=== PATIENT | male | born 1945 | race Caucasian/White ===

== ENCOUNTER → 2019-11-18 | Outpatient (CLI) | payer MEDICARE, OTHER ==
[~2019-11-18] MED LIST: ASPIRIN EC81 MG PO; BUTALB-ACETAMI1 EACH PO; CALCIUM 600 +1 EAC2 PO; CYCLOBENZAPRINE10 MG PO; CYPROHEPTADINE H4 MG PO; DOXEPIN HCL25 MG PO; FLURAZEPAM HCL15 MG PO; FOLIC ACID0.8 MG PO; LEVOTHYROXINE50 MCG PO; LISINOPRIL-HCT1 EAC2 PO; LORAZEPAM0.5 MG PO; MECLIZINE HCL12.5 MG PO; METOPROLOL TART25 MG PO; MIRTAZAPINE15 MG PO; NORCO 10-325 T1 EACH PO; NUEDEXTA 20-101 EACH PO; OXYBUTYNIN CHLOR5 M1 PO; PANTOPRAZOLE SO40 MG PO; PRAMIPEXOLE DIHY1 MG PO; PRAVASTATIN SOD40 MG PO; QUETIAPINE FUM100 MG PO; SERTRALINE HCL100 MG PO; TIROSINT50 MCG PO; TOPIRAMATE25 MG PO; VITAMIN B12-FO1 EACH PO; ZIPSOR25 MG PO
--- NOTE | 2019-11-18 11:00 | Diagnostic Imaging Report ---
Exam: KUB - 2 views Indication: Hematuria Comparison: None Findings: No radiographically apparent renal calculi. Phleboliths in the pelvis. Degenerative changes of the visualized spine and both hip joints. No acute osseous injury. Nonobstructive bowel gas pattern. No free air. Minimally visualized lung bases appear clear. Impression: No radiographically apparent renal calculi. Signed by: Jose Canela MD on 11/18/2019 10:57 AM
--- NOTE | 2019-11-18 12:02 | Diagnostic Imaging Report ---
EXAM: Renal Ultrasound INDICATION: ^[id number] ^[id number] ^ASYMPTOMATIC MIRCOSCOPIC HEMATURIA COMPARISON: None TECHNIQUE: Transverse and longitudinal images of the kidneys and bladder were obtained. FINDINGS: Right Kidney: Length: 12.2 cm Appearance: Normal echogenicity. Collecting system: No hydronephrosis Stones: None Cyst/Mass: 1.3 x 0.8 x 0.7 cm hyperechoic lower pole lesion, likely an angiomyolipoma. Left Kidney: Length: 13.1 cm Appearance: Normal echogenicity. Collecting system: No hydronephrosis Stones: None Cyst/Mass: None Bladder: No mass or calculi. Ureteral jets not visualized. Estimated prevoid volume of 207 cc. The prostate measures 2.2 x 2.6 x 2.6 cm with a volume estimate of 7.7 cc IMPRESSION: No hydronephrosis or renal calculi. 1.3 cm hyperechoic right lower pole lesion likely represents an angiomyolipoma. Signed by: Jose Canela MD on 11/18/2019 11:59 AM
== END ==
LOC: US 09:50
PROVIDERS: ATTEND Urology
DX: R31.21 Asymptomatic microscopic hematuria (principal)
CPT/HCPCS: 74018; 76770

== ENCOUNTER → 2020-01-18 | Day surgery (SDC) | payer MEDICARE, OTHER ==
[2020-01-13 11:50] LABS: BASOPHILS % 0.3 % (0.0-1.0); EOSINOPHILS # (AUTO) 0.2 (0.0-0.4); EOSINOPHILS % 1.9 % (0.0-6.0); HEMATOCRIT 39.2 % (38.2-49.6); LYMPHOCYTES # (AUTO) 2.7 (1.0-3.2); LYMPHOCYTES % 29.5 % (18.0-39.1); MEAN CORPUSCULAR HEMOGLOBIN 33.6 pg (28-32); MEAN CORPUSCULAR HGB CONC 33.2 g/dL (31-35); MEAN CORPUSCULAR VOLUME 101.3 fL (81-99); MONOCYTES # (AUTO) 0.9 (0.2-0.8); MONOCYTES % 9.9 % (4.4-11.3); NEUTROPHILS # (AUTO) 5.2 (2.1-6.9); NEUTROPHILS % 57.3 % (38.7-80.0); PLATELET COUNT 247 x10e3/uL (140-360); RED BLOOD COUNT 3.87 x10e6/uL (4.3-5.7)
--- NOTE | 2020-01-13 12:42 | Diagnostic Imaging Report ---
EXAM: CHEST 2 VIEWS DATE: 01/13/2020 11:16 AM INDICATION: Preoperative/greenish in evaluation COMPARISON: None FINDINGS: The trachea is midline. The lungs are symmetrically expanded without evidence for large focal consolidation, pneumothorax, or significant pleural effusion. The cardiomediastinal silhouette and pulmonary vasculature are within normal limits. No acute osseous abnormality is identified. The surrounding soft tissues are unremarkable. IMPRESSION: No acute cardiopulmonary process identified. Signed by: Dr. Kingsley Urbina MD on 01/13/2020 12:39 PM
[2020-01-13 13:02] LABS: ANION GAP 16.6 mmol/L (8-16); CALCIUM 9.6 mg/dL (8.4-10.2); CREATININE, SERUM 1.89 mg/dL (0.72-1.25)
[2020-01-13 13:08] LABS: POTASSIUM 5.6 mmol/L (3.5-5.1)
[~2020-01-18] MED LIST changes: +ACETAMINOPHEN PO; +ASPIR 8181 MG PO; +ATORVASTATIN CA20 MG PO; +BACITRACIN 50,000 UNIT VIAL ONE; +BACTRIM DS TAB1 EACH PO; +BUPIVACAINE HCL 0.5% INJ 30 ML VIAL INJ ONE; +CEFAZOLIN SOD 1 GM/NS 50ML 50 ML IV ONE; +CEPHALEXIN500 MG PO; +CIPRO500 MG PO; +DEXAMETHASONE SOD PHOS INJ 4 MG/ML VIAL ONE; +EFFIENT10 MG PO; +ESMOLOL HCL 100MG/10ML 10 MG/ML VIAL ONE; +FLOMAX0.4 MG PO; +HYDROXYZINE HCL25 MG PO; +ISOSORBIDE MONO30 MG PO; +LIDOCAINE HCL 2% LOCAL INJ 5 ML SDV VIAL INJ ONE; +LISINOPRIL2.5 MG PO; +LORAZEPAM PO; +MACULAR HEALTH1 EACH PO; +METOPROLOL SUCC25 MG PO; +NAPROXEN500 M1 PO; +ONDANSETRON HCL INJ 2MG/ML 2ML 2 MG/ML VIAL ONE; +PROPOFOL IV EMULSION 10 MG/ML 20 ML VIAL ONE; +RANEXA500 MG PO; +SEVOFLURANE INHAL SOLN 250 ML PEN BTL ONE
--- OUTSIDE RECORDS SUMMARY | 2020-01-18 05:11 | XMS REPORT ---
Author Author [facility] Address Unknown Phone Unavailable Care Team Providers Care Post Doctoral Researcher Name Role Phone Erik PRADO Unavailable Unavailable HAMPEL, AIMEE Unavailable Unavailable Payers Payer Name Policy Type Policy Number Effective Date Expiration Date Problems This patient has no known problems. Allergies, Adverse Reactions, Alerts Allergy Name Allergy Type Status Severity Reaction(s) Onset Date Inactive Date Treating Clinician Comments No Known Allergies DA Active U 2017-09-03 00:00:00 Medications This patient has no known medications. Results Test Description Test Time Test Comments Text Results Atomic Results Result Comments CHEST 2 VIEWS 2020-01-13 12:38:00 [place] [address] Patient Name: VIC RIVAS MR #: [id number] : 1945 Age/Sex: 74/M Req #: [id number] Adm Physician: Ordered by: Erik PRADO DPM Report #: [id number] Location: OR Room/Bed: Procedure: [id number] DX/CHEST 2 VIEWS Exam Date: 01/13/20 Exam Time: 1149 REPORT STATUS: Signed EXAM: CHEST 2 VIEWS DATE: 01/13/2020 11:16 AM IN DICATION: Preoperative/greenish in evaluation COMPARISON: None FINDINGS: The trachea is midline. The lungs are symmetrically expanded without evidence for large focal consolidation, pneumothorax, or significant pleural effusion. The cardiomediastinal silhouette and pulmonary vasculature are within normal limits. No acute osseous abnormality is identified. The surrounding soft tissues are unremarkable. IMPRESSION: No acute cardiopulmonary process identified. Signed by: Dr. Kingsley Urbina MD on 01/13/2020 12:39 PM Dictated By: KINGSLEY URBINA MD 1239 Transcribed By: CHANTEL on 01/13/20 1239 COPY TO: Erik PRADO DPM - CT CHEST W/O CONTRAST 2019-12-03 08:13:00 Name: VIC RIVAS [facility] : 1945 Age/S: 74 / M [address] [facility] Unit #: [id number] Loc: [place] [address] Phys: Verónica Bunn MD Acct: [id number] Dis Date: Status: REG CLI PHONE #: [phone] Exam Date: 12/03/2019 0707 FAX #: [phone] Reason: ABNL RESULTS OF PULM FUNCTION TEST EXAMS: CPT CODE: [id number] CT CHEST W/O CONTRAST 68974 HISTORY: Abnormal pulmonary function tests TECHNIQUE: [address] images were obtained through the chest without contrast. Automated exposure control for dose reduction. DLP: 456 mGy-cm COMPARISON: None FINDINGS: Statements: Lack of intravenous contrast limits evaluation of mediastinal contents. Lungs: No airspace consolidation or pleural effusion. Posterior left lower lobe calcified granuloma. Central airways are patent. Cardiovascular: Normal heart size. Coronary artery calcification. No pericardial effusion. No thoracic aortic aneurysm. Normal caliber pulmonary arteries. Mediastinum: No lymphadenopathy. Visualized thyroid is unremarkable. Normal esophagus. Included upper abdomen: Unremarkable. Bones and superficial soft tissues: Degen erative changes of the spine and shoulders. IMPRESSION: No airspace consolidation or pleural effusion. No pulmonary scarring or bronchiectasis. Normal heart size. Coronary artery calcification. LOCATION: LP PAGE 1 Signed Report (CONTINUED) Name: VIC RIVAS [facility] : 1945 Age/S: 74 / M [address] [facility] Unit #: [id number] Loc: [place] [address] Phys: Verónica Bunn MD Acct: [id number] Dis Date: Status: REG CLI PHONE #: [phone] Exam Date: 12/03/2019 0707 FAX #: [phone] Reason: ABNL RESULTS OF PULM FUNCTION TEST EXAMS: CPT CODE: [id number] CT CHEST W/O CONTRAST 31861 <Continued> at 0813 Reported and signed by: Cinda Ludwig D.O. CC: Alexys Ozuna MD; Verónica Bunn MD Technologist:Reza Rocha RT(R),(MR),(CT) CTDI: DLP: Trnscb Date/Time: 12/03/2019 (812) [email or web address] Orig Print D/T: S: 12/03/2019 (815) PAGE 2 Signed Report US RENAL RETROPERITONEAL COMP 2019-11-18 11:55:00 [place] [address] Patient Name: VIC RIVAS MR #: [id number] : 1945 Age/Sex: 74/M Req #: [id number] Adm Physician: Ordered by: AIMEE PINTO MD Report #: [id number] Location: US Room/Bed: Procedure: [id number] US/US RENAL RETROPERITONEAL COMP Exam Date: 11/18/19 Exam Time: 1018 REPORT STATUS: Signed EXAM: Renal Ultrasound INDICATION: [id number] ASYMPTOMATIC MIRCOSCOPIC HEMATURIA COMPARISON: None TECHNIQUE: Transverse and longitudinal images of the kidneys and bladder were obtained. FINDINGS: Right Kidney: Length: 12.2 cm Appearance: Normal echogenicity. Collecting system: No hydronephrosis Stones: None Cyst/Mass: 1.3 x 0.8 x 0.7 cm hyperechoic lower pole lesion, likely an angiomyolipoma. Left Kidney: Length: 13.1 cm Appearance: Normal echogenicity. Collecting system: No hydronephrosis Stones: None Cyst/Mass: None Bladder: No mass or calculi. Ureteral jets not visualized. Estimated prevoid volume of 207 cc. The prostate measures 2.2 x 2.6 x 2.6 cm with a volume estimate of 7.7 cc IMPRESSION: No hydronephrosis or renal calculi. 1.3 cm hyperechoic right lower pole lesion likely represents an angiomyolipoma. Signed by: Hill Diallo MD on 11/18/2019 11:59 AM Dictated By: HILL DIALLO MD 1159 Transcribed By: CHANTEL on 11/18/19 1159 COPY TO: AIMEE PINTO MD [facility] 2019-11-18 10:55:00 [place] [address] Patient Name: VIC RIVAS MR #: [id number] : 1945 Age/Sex: 74/M Req #: [id number] Adm Physician: Ordered by: AIMEE PINTO MD Report #: [id number] Location: Room/Bed: Procedure: [id number] DX/ABDOMEN-1VIEW (KUB) Exam Date: 11/18/19 Exam Time: 1043 REPORT STATUS: Signed Exam: KUB - 2 views Indication: Hematuria Comparison: None Findings: No radiographically apparent renal calculi. Phleboliths in the pelvis. Degenerative changes of the visualized spine and both hip joints. No acute osseous injury. Nonobstructive bowel gas pattern. No free air. Minimally visualized lung bases appear clear. Impression: No radiographically apparent renal calculi. Signed by: Hill Diallo MD on 11/18/2019 10:57 AM Dictated By: HILL DIALLO MD 105 Transcribed By: CHANTEL on 11/18/19 105 COPY TO: AIMEE PINTO MD GLUBED 2019-10-10 13:20:00 GLUBED (test code=GLUBED) 200 mg/dL 74-106 Performed by certified buffing wheel operator at [facility] [id number] 05:35:00* Test Item Value Reference Range Comments GLUBED (test code=GLUBED) 169 mg/dL 74-106 Performed by certified buffing wheel operator at [facility] BASIC METABOLIC [id number] 05:06:00* Test Item Value Reference Range Comments SODIUM (test code=NA) 139 mmol/L 136-145 POTASSIUM (test code=K) 3.2 mmol/L 3.5-5.1 CHLORIDE (test code=CL) 101.0 mmol/L 98-107 CARBON DIOXIDE (test code=CO2) 29.0 mmol/L 21-32 ANION GAP (test code=GAP) 12.2 10-20 GLUCOSE (test code=GLU) 182 mg/dL 74-106 BLOOD UREA NITROGEN (test code=BUN) 24 mg/dL 7-18 GLOMERULAR FILTRATION RATE (test code=GFR) 54 mL/min >=60 Estimated GFR by using Modified MDRD formula.Chronic kidney disease is defined as either kidney damageor GFR <60 mL/min/1.73 m2 for >3 months. CREATININE (test code=CREAT) 1.30 mg/dL 0.7-1.3 BUN/CREATININE RATIO (test code=BUN/CREA) 19.0 10-20 CALCIUM (test code=CA) 8.1 mg/dL 8.5-10.1 BASIC METABOLIC [id number] 05:05:00* Test Item Value Reference Range Comments SODIUM (test code=NA) 139 mmol/L 136-145 POTASSIUM (test code=K) 3.2 mmol/L 3.5-5.1 CHLORIDE (test code=CL) 101.0 mmol/L 98-107 CARBON DIOXIDE (test code=CO2) mmol/L 21-32 ANION GAP (test code=GAP) 10-20 GLUCOSE (test code=GLU) mg/dL 74-106 BLOOD UREA NITROGEN (test code=BUN) mg/dL 7-18 GLOMERULAR FILTRATION RATE (test code=GFR) mL/min >=60 CREATININE (test code=CREAT) mg/dL 0.7-1.3 BUN/CREATININE RATIO (test code=BUN/CREA) 10-20 CALCIUM (test code=CA) mg/dL 8.5-10.1 CBC W/AUTO [id number] 04:38:00* Test Item Value Reference Range Comments WHITE BLOOD CELL (test code=WBC) 7.6 K/mm3 4.5-12.5 RED BLOOD CELL (test code=RBC) 3.13 mill/mm3 4.0-5.8 HEMOGLOBIN (test code=HGB) 10.4 gram/dL 13.0-17.5 HEMATOCRIT (test code=HCT) 32.3 % 42.0-52.0 MEAN CELL VOLUME (test code=MCV) 103.2 fL 80-98 MEAN CELL HGB (test code=MCH) 33.2 picogram 27.0-33.0 MEAN CELL HGB CONCETRATION (test code=MCHC) 32.2 gram/dL 33.0-36.0 RED CELL DISTRIBUTION WIDTH (test code=RDW) 13.5 % 11.6-16.2 RED CELL DISTRIBUTION WIDTH SD (test code=RDW-SD) 51.2 fL 37.0-51.0 PLATELET COUNT (test code=PLT) 156 K/mm3 150-450 MEAN PLATELET VOLUME (test code=MPV) 9.9 fL 6.7-11.0 NEUTROPHIL % (test code=NT%) 66.4 % 39.0-69.0 IMMATURE GRANULOCYTE % (test code=IG%) 1.4 % 0.0-5.0 LYMPHOCYTE % (test code=LY%) 21.2 % 25.0-55.0 MONOCYTE % (test code=MO%) 9.0 % 0.0-10.0 EOSINOPHIL % (test code=EO%) 1.7 % 0.0-5.0 BASOPHIL % (test code=BA%) 0.3 % 0.0-1.0 NUCLEATED RBC % (test code=NRBC%) 0.0 % 0-0 NEUTROPHIL # (test code=NT#) 5.04 K/mm3 1.8-7.7 IMMATURE GRANULOCYTE # (test code=IG#) 0.11 x10 3/uL 0-0.03 LYMPHOCYTE # (test code=LY#) 1.61 K/mm3 1.0-5.0 MONOCYTE # (test code=MO#) 0.68 K/mm3 0-0.8 EOSINOPHIL # (test code=EO#) 0.13 K/mm3 0.0-0.5 BASOPHIL # (test code=BA#) 0.02 K/mm3 0.0-0.2 NUCLEATED RBC # (test code=NRBC#) 0.00 K/mm3 0.0-0.1 MANUAL DIFF REQUIRED (test code=MDIFF) NO [id number] 20:50:00* Test Item Value Reference Range Comments GLUBED (test code=GLUBED) 123 mg/dL 74-106 Performed by certified buffing wheel operator at [facility] [id number] 17:41:00* Test Item Value Reference Range Comments GLUBED (test code=GLUBED) 164 mg/dL 74-106 Performed by certified buffing wheel operator at [facility] [id number] 12:51:00* Test Item Value Reference Range Comments GLUBED (test code=GLUBED) 114 mg/dL 74-106 Performed by certified buffing wheel operator at [facility] BASIC METABOLIC [id number] 11:47:00* Test Item Value Reference Range Comments SODIUM (test code=NA) 138 mmol/L 136-145 POTASSIUM (test code=K) 3.2 mmol/L 3.5-5.1 CHLORIDE (test code=CL) 100.0 mmol/L 98-107 CARBON DIOXIDE (test code=CO2) 29.0 mmol/L 21-32 ANION GAP (test code=GAP) 12.2 10-20 GLUCOSE (test code=GLU) 154 mg/dL 74-106 BLOOD UREA NITROGEN (test code=BUN) 27 mg/dL 7-18 GLOMERULAR FILTRATION RATE (test code=GFR) 54 mL/min >=60 Estimated GFR by using Modified MDRD formula.Chronic kidney disease is defined as either kidney damageor GFR <60 mL/min/1.73 m2 for >3 months. CREATININE (test code=CREAT) 1.30 mg/dL 0.7-1.3 BUN/CREATININE RATIO (test code=BUN/CREA) 20.9 10-20 CALCIUM (test code=CA) 8.5 mg/dL 8.5-10.1 BASIC METABOLIC [id number] 11:44:00* Test Item Value Reference Range Comments SODIUM (test code=NA) 138 mmol/L 136-145 POTASSIUM (test code=K) 3.2 mmol/L 3.5-5.1 CHLORIDE (test code=CL) 100.0 mmol/L 98-107 CARBON DIOXIDE (test code=CO2) mmol/L 21-32 ANION GAP (test code=GAP) 10-20 GLUCOSE (test code=GLU) mg/dL 74-106 BLOOD UREA NITROGEN (test code=BUN) mg/dL 7-18 GLOMERULAR FILTRATION RATE (test code=GFR) mL/min >=60 CREATININE (test code=CREAT) mg/dL 0.7-1.3 BUN/CREATININE RATIO (test code=BUN/CREA) 10-20 CALCIUM (test code=CA) 8.5 mg/dL 8.5-10.1 CBC W/AUTO [id number] 11:14:00* Test Item Value Reference Range Comments WHITE BLOOD CELL (test code=WBC) 7.1 K/mm3 4.5-12.5 RED BLOOD CELL (test code=RBC) 3.20 mill/mm3 4.0-5.8 HEMOGLOBIN (test code=HGB) 10.6 gram/dL 13.0-17.5 HEMATOCRIT (test code=HCT) 32.6 % 42.0-52.0 MEAN CELL VOLUME (test code=MCV) 101.9 fL 80-98 MEAN CELL HGB (test code=MCH) 33.1 picogram 27.0-33.0 MEAN CELL HGB CONCETRATION (test code=MCHC) 32.5 gram/dL 33.0-36.0 RED CELL DISTRIBUTION WIDTH (test code=RDW) 13.7 % 11.6-16.2 RED CELL DISTRIBUTION WIDTH SD (test code=RDW-SD) 51.7 fL 37.0-51.0 PLATELET COUNT (test code=PLT) 152 K/mm3 150-450 MEAN PLATELET VOLUME (test code=MPV) 9.7 fL 6.7-11.0 NEUTROPHIL % (test code=NT%) 68.5 % 39.0-69.0 IMMATURE GRANULOCYTE % (test code=IG%) 0.8 % 0.0-5.0 LYMPHOCYTE % (test code=LY%) 18.8 % 25.0-55.0 MONOCYTE % (test code=MO%) 9.5 % 0.0-10.0 EOSINOPHIL % (test code=EO%) 2.1 % 0.0-5.0 BASOPHIL % (test code=BA%) 0.3 % 0.0-1.0 NUCLEATED RBC % (test code=NRBC%) 0.0 % 0-0 NEUTROPHIL # (test code=NT#) 4.83 K/mm3 1.8-7.7 IMMATURE GRANULOCYTE # (test code=IG#) 0.06 x10 3/uL 0-0.03 LYMPHOCYTE # (test code=LY#) 1.33 K/mm3 1.0-5.0 MONOCYTE # (test code=MO#) 0.67 K/mm3 0-0.8 EOSINOPHIL # (test code=EO#) 0.15 K/mm3 0.0-0.5 BASOPHIL # (test code=BA#) 0.02 K/mm3 0.0-0.2 NUCLEATED RBC # (test code=NRBC#) 0.00 K/mm3 0.0-0.1 MANUAL DIFF REQUIRED (test code=MDIFF) NO [id number] 06:32:00* Test Item Value Reference Range Comments GLUBED (test code=GLUBED) 103 mg/dL 74-106 Performed by certified buffing wheel operator at [facility] [id number] 21:20:00* Test Item Value Reference Range Comments GLUBED (test code=GLUBED) 193 mg/dL 74-106 Performed by certified buffing wheel operator at [facility] [id number] 17:25:00* Test Item Value Reference Range Comments GLUBED (test code=GLUBED) 105 mg/dL 74-106 Performed by certified buffing wheel operator at [facility] [id number] 12:17:00* Test Item Value Reference Range Comments GLUBED (test code=GLUBED) 195 mg/dL 74-106 Performed by certified buffing wheel operator at [facility] [id number] 07:12:00* Test Item Value Reference Range Comments GLUBED (test code=GLUBED) 94 mg/dL 74-106 Performed by certified buffing wheel operator at [facility] BASIC METABOLIC [id number] 05:05:00* Test Item Value Reference Range Comments SODIUM (test code=NA) 139 mmol/L 136-145 POTASSIUM (test code=K) 4.1 mmol/L 3.5-5.1 CHLORIDE (test code=CL) 100.0 mmol/L 98-107 CARBON DIOXIDE (test code=CO2) 31.0 mmol/L 21-32 ANION GAP (test code=GAP) 12.1 10-20 GLUCOSE (test code=GLU) 114 mg/dL 74-106 BLOOD UREA NITROGEN (test code=BUN) 25 mg/dL 7-18 GLOMERULAR FILTRATION RATE (test code=GFR) 43 mL/min >=60 Estimated GFR by using Modified MDRD formula.Chronic kidney disease is defined as either kidney damageor GFR <60 mL/min/1.73 m2 for >3 months. CREATININE (test code=CREAT) 1.60 mg/dL 0.7-1.3 BUN/CREATININE RATIO (test code=BUN/CREA) 16.1 10-20 CALCIUM (test code=CA) 8.7 mg/dL 8.5-10.1 CBC W/AUTO [id number] 04:39:00* Test Item Value Reference Range Comments WHITE BLOOD CELL (test code=WBC) 8.7 K/mm3 4.5-12.5 RED BLOOD CELL (test code=RBC) 3.40 mill/mm3 4.0-5.8 HEMOGLOBIN (test code=HGB) 11.2 gram/dL 13.0-17.5 HEMATOCRIT (test code=HCT) 34.5 % 42.0-52.0 MEAN CELL VOLUME (test code=MCV) 101.5 fL 80-98 MEAN CELL HGB (test code=MCH) 32.9 picogram 27.0-33.0 MEAN CELL HGB CONCETRATION (test code=MCHC) 32.5 gram/dL 33.0-36.0 RED CELL DISTRIBUTION WIDTH (test code=RDW) 14.0 % 11.6-16.2 RED CELL DISTRIBUTION WIDTH SD (test code=RDW-SD) 52.1 fL 37.0-51.0 PLATELET COUNT (test code=PLT) 175 K/mm3 150-450 MEAN PLATELET VOLUME (test code=MPV) 10.7 fL 6.7-11.0 NEUTROPHIL % (test code=NT%) 68.1 % 39.0-69.0 IMMATURE GRANULOCYTE % (test code=IG%) 1.1 % 0.0-5.0 LYMPHOCYTE % (test code=LY%) 18.1 % 25.0-55.0 MONOCYTE % (test code=MO%) 10.8 % 0.0-10.0 EOSINOPHIL % (test code=EO%) 1.6 % 0.0-5.0 BASOPHIL % (test code=BA%) 0.3 % 0.0-1.0 NUCLEATED RBC % (test code=NRBC%) 0.0 % 0-0 NEUTROPHIL # (test code=NT#) 5.93 K/mm3 1.8-7.7 IMMATURE GRANULOCYTE # (test code=IG#) 0.10 x10 3/uL 0-0.03 LYMPHOCYTE # (test code=LY#) 1.58 K/mm3 1.0-5.0 MONOCYTE # (test code=MO#) 0.94 K/mm3 0-0.8 EOSINOPHIL # (test code=EO#) 0.14 K/mm3 0.0-0.5 BASOPHIL # (test code=BA#) 0.03 K/mm3 0.0-0.2 NUCLEATED RBC # (test code=NRBC#) 0.00 K/mm3 0.0-0.1 MANUAL DIFF REQUIRED (test code=MDIFF) NO [id number] 20:42:00* Test Item Value Reference Range Comments GLUBED (test code=GLUBED) 165 mg/dL 74-106 Performed by certified buffing wheel operator at [facility] [id number] 16:58:00* Test Item Value Reference Range Comments GLUBED (test code=GLUBED) 213 mg/dL 74-106 Performed by certified buffing wheel operator at [facility] [id number] 12:23:00* Test Item Value Reference Range Comments GLUBED (test code=GLUBED) 107 mg/dL 74-106 Performed by certified buffing wheel operator at [facility] [id number] 06:05:00* Test Item Value Reference Range Comments GLUBED (test code=GLUBED) 88 mg/dL 74-106 Performed by certified buffing wheel operator at [facility] BASIC METABOLIC [id number] 05:06:00* Test Item Value Reference Range Comments SODIUM (test code=NA) 141 mmol/L 136-145 POTASSIUM (test code=K) 3.2 mmol/L 3.5-5.1 CHLORIDE (test code=CL) 103.0 mmol/L 98-107 CARBON DIOXIDE (test code=CO2) 30.0 mmol/L 21-32 ANION GAP (test code=GAP) 11.2 10-20 GLUCOSE (test code=GLU) 84 mg/dL 74-106 BLOOD UREA NITROGEN (test code=BUN) 22 mg/dL 7-18 GLOMERULAR FILTRATION RATE (test code=GFR) 59 mL/min >=60 Estimated GFR by using Modified MDRD formula.Chronic kidney disease is defined as either kidney damageor GFR <60 mL/min/1.73 m2 for >3 months. CREATININE (test code=CREAT) 1.20 mg/dL 0.7-1.3 BUN/CREATININE RATIO (test code=BUN/CREA) 18.8 10-20 CALCIUM (test code=CA) 8.3 mg/dL 8.5-10.1 CBC W/AUTO [id number] 04:38:00* Test Item Value Reference Range Comments WHITE BLOOD CELL (test code=WBC) 7.2 K/mm3 4.5-12.5 RED BLOOD CELL (test code=RBC) 3.23 mill/mm3 4.0-5.8 HEMOGLOBIN (test code=HGB) 10.6 gram/dL 13.0-17.5 HEMATOCRIT (test code=HCT) 33.1 % 42.0-52.0 MEAN CELL VOLUME (test code=MCV) 102.5 fL 80-98 MEAN CELL HGB (test code=MCH) 32.8 picogram 27.0-33.0 MEAN CELL HGB CONCETRATION (test code=MCHC) 32.0 gram/dL 33.0-36.0 RED CELL DISTRIBUTION WIDTH (test code=RDW) 13.7 % 11.6-16.2 RED CELL DISTRIBUTION WIDTH SD (test code=RDW-SD) 52.1 fL 37.0-51.0 PLATELET COUNT (test code=PLT) 149 K/mm3 150-450 MEAN PLATELET VOLUME (test code=MPV) 10.5 fL 6.7-11.0 NEUTROPHIL % (test code=NT%) 66.4 % 39.0-69.0 IMMATURE GRANULOCYTE % (test code=IG%) 1.1 % 0.0-5.0 LYMPHOCYTE % (test code=LY%) 21.3 % 25.0-55.0 MONOCYTE % (test code=MO%) 8.8 % 0.0-10.0 EOSINOPHIL % (test code=EO%) 2.1 % 0.0-5.0 BASOPHIL % (test code=BA%) 0.3 % 0.0-1.0 NUCLEATED RBC % (test code=NRBC%) 0.0 % 0-0 NEUTROPHIL # (test code=NT#) 4.76 K/mm3 1.8-7.7 IMMATURE GRANULOCYTE # (test code=IG#) 0.08 x10 3/uL 0-0.03 LYMPHOCYTE # (test code=LY#) 1.53 K/mm3 1.0-5.0 MONOCYTE # (test code=MO#) 0.63 K/mm3 0-0.8 EOSINOPHIL # (test code=EO#) 0.15 K/mm3 0.0-0.5 BASOPHIL # (test code=BA#) 0.02 K/mm3 0.0-0.2 NUCLEATED RBC # (test code=NRBC#) 0.00 K/mm3 0.0-0.1 MANUAL DIFF REQUIRED (test code=MDIFF) NO [id number] 21:20:00* Test Item Value Reference Range Comments GLUBED (test code=GLUBED) 116 mg/dL 74-106 Performed by certified buffing wheel operator at [facility] [id number] 18:28:00* Test Item Value Reference Range Comments GLUBED (test code=GLUBED) 163 mg/dL 74-106 Performed by certified buffing wheel operator at [facility] [id number] 12:02:00* Test Item Value Reference Range Comments GLUBED (test code=GLUBED) 141 mg/dL 74-106 Performed by certified buffing wheel operator at [facility] FE W/TOTAL IRON BINDING CAP.[id number] 11:58:00* Test Item Value Reference Range Comments SERUM IRON (test code=IRON) 43 ug/dL 50-175 TOTAL IRON BINDING CAPACITY (test code=TIBC) 255 mcg/dL 250-450 IRON SATURATION (test code=FESAT) 16.86 % 13-45 VITAMIN [id number] 11:58:00* Test Item Value Reference Range Comments VITAMIN B12 (test code=VITB12) 255 pg/mL 193-986 FOLIC [id number] 11:58:00* Test Item Value Reference Range Comments FOLIC ACID (test code=FOL) 13.8 ng/mL 3.10-17.50 [id number] 11:58:00* Test Item Value Reference Range Comments FERRITIN (test code=ANDREA) 98 ng/mL 8-388 [id number] 06:33:00* Test Item Value Reference Range Comments GLUBED (test code=GLUBED) 99 mg/dL 74-106 Performed by certified buffing wheel operator at [facility] B-TYPE NATRIURETIC [id number] 06:11:00* Test Item Value Reference Range Comments B-TYPE NATRIURETIC PEPTIDE (test code=BNP) 208.15 pgram/mL 0-100 BASIC METABOLIC [id number] 05:33:00* Test Item Value Reference Range Comments SODIUM (test code=NA) 142 mmol/L 136-145 POTASSIUM (test code=K) 3.6 mmol/L 3.5-5.1 CHLORIDE (test code=CL) 105.0 mmol/L 98-107 CARBON DIOXIDE (test code=CO2) 30.0 mmol/L 21-32 ANION GAP (test code=GAP) 10.6 10-20 GLUCOSE (test code=GLU) 96 mg/dL 74-106 BLOOD UREA NITROGEN (test code=BUN) 24 mg/dL 7-18 GLOMERULAR FILTRATION RATE (test code=GFR) 59 mL/min >=60 Estimated GFR by using Modified MDRD formula.Chronic kidney disease is defined as either kidney damageor GFR <60 mL/min/1.73 m2 for >3 months. CREATININE (test code=CREAT) 1.20 mg/dL 0.7-1.3 BUN/CREATININE RATIO (test code=BUN/CREA) 19.2 10-20 CALCIUM (test code=CA) 8.3 mg/dL 8.5-10.1 [id number] 05:33:00* Test Item Value Reference Range Comments MAGNESIUM (test code=MAG) 2.0 mg/dL 1.8-2.4 [id number] 05:33:00* Test Item Value Reference Range Comments TROPONIN-I (test code=TROPI) 0.044 ng/mL 0-0.045 BASIC METABOLIC [id number] 05:27:00* Test Item Value Reference Range Comments SODIUM (test code=NA) 142 mmol/L 136-145 POTASSIUM (test code=K) 3.6 mmol/L 3.5-5.1 CHLORIDE (test code=CL) 105.0 mmol/L 98-107 CARBON DIOXIDE (test code=CO2) mmol/L 21-32 ANION GAP (test code=GAP) 10-20 GLUCOSE (test code=GLU) mg/dL 74-106 BLOOD UREA NITROGEN (test code=BUN) mg/dL 7-18 GLOMERULAR FILTRATION RATE (test code=GFR) mL/min >=60 CREATININE (test code=CREAT) mg/dL 0.7-1.3 BUN/CREATININE RATIO (test code=BUN/CREA) 10-20 CALCIUM (test code=CA) mg/dL 8.5-10.1 [id number] 05:27:00* Test Item Value Reference Range Comments MAGNESIUM (test code=MAG) mg/dL 1.8-2.4 [id number] 05:27:00* Test Item Value Reference Range Comments TROPONIN-I (test code=TROPI) ng/mL 0-0.045 CBC W/AUTO [id number] 04:39:00* Test Item Value Reference Range Comments WHITE BLOOD CELL (test code=WBC) 7.2 K/mm3 4.5-12.5 RED BLOOD CELL (test code=RBC) 3.32 mill/mm3 4.0-5.8 HEMOGLOBIN (test code=HGB) 10.9 gram/dL 13.0-17.5 HEMATOCRIT (test code=HCT) 34.2 % 42.0-52.0 MEAN CELL VOLUME (test code=MCV) 103.0 fL 80-98 MEAN CELL HGB (test code=MCH) 32.8 picogram 27.0-33.0 MEAN CELL HGB CONCETRATION (test code=MCHC) 31.9 gram/dL 33.0-36.0 RED CELL DISTRIBUTION WIDTH (test code=RDW) 13.9 % 11.6-16.2 RED CELL DISTRIBUTION WIDTH SD (test code=RDW-SD) 52.5 fL 37.0-51.0 PLATELET COUNT (test code=PLT) 142 K/mm3 150-450 MEAN PLATELET VOLUME (test code=MPV) 10.6 fL 6.7-11.0 NEUTROPHIL % (test code=NT%) 67.2 % 39.0-69.0 IMMATURE GRANULOCYTE % (test code=IG%) 1.0 % 0.0-5.0 LYMPHOCYTE % (test code=LY%) 19.6 % 25.0-55.0 MONOCYTE % (test code=MO%) 10.7 % 0.0-10.0 EOSINOPHIL % (test code=EO%) 1.1 % 0.0-5.0 BASOPHIL % (test code=BA%) 0.4 % 0.0-1.0 NUCLEATED RBC % (test code=NRBC%) 0.0 % 0-0 NEUTROPHIL # (test code=NT#) 4.85 K/mm3 1.8-7.7 IMMATURE GRANULOCYTE # (test code=IG#) 0.07 x10 3/uL 0-0.03 LYMPHOCYTE # (test code=LY#) 1.41 K/mm3 1.0-5.0 MONOCYTE # (test code=MO#) 0.77 K/mm3 0-0.8 EOSINOPHIL # (test code=EO#) 0.08 K/mm3 0.0-0.5 BASOPHIL # (test code=BA#) 0.03 K/mm3 0.0-0.2 NUCLEATED RBC # (test code=NRBC#) 0.00 K/mm3 0.0-0.1 MANUAL DIFF REQUIRED (test code=MDIFF) NO [id number] 20:50:00* Test Item Value Reference Range Comments GLUBED (test code=GLUBED) 162 mg/dL 74-106 Performed by certified buffing wheel operator at [facility] [id number] 17:33:00* Test Item Value Reference Range Comments GLUBED (test code=GLUBED) 101 mg/dL 74-106 Performed by certified buffing wheel operator at [facility] [id number] 11:54:00* Test Item Value Reference Range Comments GLUBED (test code=GLUBED) 94 mg/dL 74-106 Performed by certified buffing wheel operator at [facility] COMPREHENSIVE METABOLIC [id number] 08:37:00* Test Item Value Reference Range Comments SODIUM (test code=NA) 142 mmol/L 136-145 POTASSIUM (test code=K) 3.6 mmol/L 3.5-5.1 CHLORIDE (test code=CL) 107.0 mmol/L 98-107 CARBON DIOXIDE (test code=CO2) 27.0 mmol/L 21-32 ANION GAP (test code=GAP) 11.6 10-20 GLUCOSE (test code=GLU) 102 mg/dL 74-106 BLOOD UREA NITROGEN (test code=BUN) 23 mg/dL 7-18 GLOMERULAR FILTRATION RATE (test code=GFR) 54 mL/min >=60 Estimated GFR by using Modified MDRD formula.Chronic kidney disease is defined as either kidney damageor GFR <60 mL/min/1.73 m2 for >3 months. CREATININE (test code=CREAT) 1.30 mg/dL 0.7-1.3 BUN/CREATININE RATIO (test code=BUN/CREA) 17.7 10-20 TOTAL PROTEIN (test code=PROT) 7.1 gram/dL 6.4-8.2 ALBUMIN (test code=ALB) 3.1 g/dL 3.4-5.0 GLOBULIN (test code=GLOB) 4.0 gram/dL 2.7-4.2 ALBUMIN/GLOBULIN RATIO (test code=A/G) 0.8 0.75-1.50 CALCIUM (test code=CA) 8.2 mg/dL 8.5-10.1 BILIRUBIN TOTAL (test code=BILT) 0.40 mg/dL 0.0-1.0 SGOT/AST (test code=AST) 25 IUnit/L 15-37 SGPT/ALT (test code=ALT) 26 IUnit/L 12-78 ALKALINE PHOSPHATASE TOTAL (test code=ALKP) 98 IUnit/L 45-117 Note change in reference range due to change in reagent. LIPID PROFILE (CORONARY RISK)2019-10-05 08:37:00* Test Item Value Reference Range Comments TRIGLYCERIDES (test code=TRIG) 91 mg/dL 20-150 CHOLESTEROL (test code=CHOL) 212 mg/dL 0-200 CHOLESTEROL/HDL RATIO (test code=CHOLHDL) 4.0 RATIO 0-4.9 RISK ASSOCIATED WITH CHOL/HDL RATIOS: Risk Male Female1/2 AVERAGE 3.43 3.27AVERAGE 4.97 4.442X AVERAGE 9.55 7.053X AVERAGE 23.39 11.04 REFERENCE VALUE IS RELATED TO RISK LEVELS ASRECOMMENDED BY THE [facility]. HEART, LUNG, AND BLOOD INST. HDL CHOLESTEROL (test code=HDL) 43 mg/dL 40-60 LIPOPROTEIN LDL (test code=LDL) 154 mg/dL 100-129 RN PERSONNEL, CONTACT PHYSICIAN IMMEDIATELY IF THIS IS A STROKE, AMI OR CAROTID STENOSIS PATIENT WHEN THE LDL >100 (1ST OCCURENCE, THIS ADMISSION) Reference Interval: mg/dL mmol/L Optimal <100 <2.6Near/above optimal 100-129 2.6- 3.3Borderline High 130-159 3.4-4.1High 160-189 4.1-4.9Very High >=190 >=4.9=========This LDL result is a direct measurement.========= [id number] 08:37:00* Test Item Value Reference Range Comments MAGNESIUM (test code=MAG) 2.2 mg/dL 1.8-2.4 THYROID PROFILE [id number] 08:37:00* Test Item Value Reference Range Comments T3 UPTAKE (test code=T3UP) 30.0 % 30.0-40.0 T4 (THYROXINE) (test code=T4) 9.6 ug/dL 4.5-13.9 T7 (FREE THYROXINE INDEX) (test code=T7) 2.88 FTI 1.3-5.1 THYROID STIMULATING HORMONE (test code=TSH) 4.960 uIU/mL 0.36-3.74 TSH REFERENCE RANGES: EUTHYROID: 0.35 - 4.3 mIU/mL HYPO : > 5.5 mIU/mL HYPER : < 0.35 mIU/mL [id number] 08:37:00* Test Item Value Reference Range Comments TROPONIN-I (test code=TROPI) 0.052 ng/mL 0-0.045 PREVIOUSLY CALLED. V.LAB. 10/05/19 0837 B-TYPE NATRIURETIC [id number] 08:25:00* Test Item Value Reference Range Comments B-TYPE NATRIURETIC PEPTIDE (test code=BNP) 200.18 pgram/mL 0-100 PROTHROMBIN [id number] 08:15:00* Test Item Value Reference Range Comments PROTHROMBIN TIME PATIENT (test code=PTP) 12.3 seconds 9.0-14.0 INTERNATIONAL NORMAL RATIO (test code=INR) 1.1 0.8-1.2 The therapeutic range for oral anticoagulant therapy formost indications is an international normalized ratio (INR)of between 2.0 and 3.0. The recommended therapeutic INRrange for various clinical situations is listed below: Clinical Situation INR range Pulmonary e mbolism treatment (2.0-3.0)Venous thrombosis treatmentVenous thrombosis prophylaxis (high risk surgery)Prevention of systemic embolism from: Acute myocardial infarction Valvular heart disease Atrial fibrillation Mechanical prosthetic heart valves (2.5-3.5) IS PATIENT ON ANTICOAGULANTS? NTHROMBOPLASTIN TIME [id number] 08:15:00* Test Item Value Reference Range Comments THROMBOPLASTIN TIME PARTIAL (test code=PTT) 37.4 seconds 25.0-36.5 IS PATIENT ON ANTICOAGULANTS? NCOMPREHENSIVE METABOLIC [id number] 08:11:00 * Test Item Value Reference Range Comments SODIUM (test code=NA) 142 mmol/L 136-145 POTASSIUM (test code=K) 3.6 mmol/L 3.5-5.1 CHLORIDE (test code=CL) 107.0 mmol/L 98-107 CARBON DIOXIDE (test code=CO2) mmol/L 21-32 ANION GAP (test code=GAP) 10-20 GLUCOSE (test code=GLU) mg/dL 74-106 BLOOD UREA NITROGEN (test code=BUN) mg/dL 7-18 GLOMERULAR FILTRATION RATE (test code=GFR) mL/min >=60 CREATININE (test code=CREAT) mg/dL 0.7-1.3 BUN/CREATININE RATIO (test code=BUN/CREA) 10-20 TOTAL PROTEIN (test code=PROT) gram/dL 6.4-8.2 ALBUMIN (test code=ALB) g/dL 3.4-5.0 GLOBULIN (test code=GLOB) gram/dL 2.7-4.2 ALBUMIN/GLOBULIN RATIO (test code=A/G) 0.75-1.50 CALCIUM (test code=CA) mg/dL 8.5-10.1 BILIRUBIN TOTAL (test code=BILT) mg/dL 0.0-1.0 SGOT/AST (test code=AST) IUnit/L 15-37 SGPT/ALT (test code=ALT) IUnit/L 12-78 ALKALINE PHOSPHATASE TOTAL (test code=ALKP) IUnit/L 45-117 LIPID PROFILE (CORONARY RISK)2019-10-05 08:11:00* Test Item Value Reference Range Comments TRIGLYCERIDES (test code=TRIG) mg/dL 20-150 CHOLESTEROL (test code=CHOL) mg/dL 0-200 CHOLESTEROL/HDL RATIO (test code=CHOLHDL) RATIO 0-4.9 HDL CHOLESTEROL (test code=HDL) mg/dL 40-60 LIPOPROTEIN LDL (test code=LDL) mg/dL 100-129 [id number] 08:11:00* Test Item Value Reference Range Comments MAGNESIUM (test code=MAG) mg/dL 1.8-2.4 THYROID PROFILE [id number] 08:11:00* Test Item Value Reference Range Comments T3 UPTAKE (test code=T3UP) % 30.0-40.0 T4 (THYROXINE) (test code=T4) ug/dL 4.5-13.9 T7 (FREE THYROXINE INDEX) (test code=T7) FTI 1.3-5.1 THYROID STIMULATING HORMONE (test code=TSH) uIU/mL 0.36-3.74 [id number] 08:11:00* Test Item Value Reference Range Comments TROPONIN-I (test code=TROPI) ng/mL 0-0.045 [id number] 08:08:00* Test Item Value Reference Range Comments GLYCOSYLATED HEMOGLOBIN (HA1C) (test code=GLYHGB) 5.4 % HbA1 4.8-6.0 ESTIMATED AVERAGE GLUCOSE (test code=EAG) 108 MG/DL CBC W/AUTO [id number] 08:07:00* Test Item Value Reference Range Comments WHITE BLOOD CELL (test code=WBC) 7.1 K/mm3 4.5-12.5 RED BLOOD CELL (test code=RBC) 3.20 mill/mm3 4.0-5.8 HEMOGLOBIN (test code=HGB) 10.6 gram/dL 13.0-17.5 HEMATOCRIT (test code=HCT) 33.6 % 42.0-52.0 MEAN CELL VOLUME (test code=MCV) 105.0 fL 80-98 MEAN CELL HGB (test code=MCH) 33.1 picogram 27.0-33.0 MEAN CELL HGB CONCETRATION (test code=MCHC) 31.5 gram/dL 33.0-36.0 RED CELL DISTRIBUTION WIDTH (test code=RDW) 14.5 % 11.6-16.2 RED CELL DISTRIBUTION WIDTH SD (test code=RDW-SD) 55.8 fL 37.0-51.0 PLATELET COUNT (test code=PLT) 136 K/mm3 150-450 MEAN PLATELET VOLUME (test code=MPV) 10.3 fL 6.7-11.0 NEUTROPHIL % (test code=NT%) 68.8 % 39.0-69.0 IMMATURE GRANULOCYTE % (test code=IG%) 1.0 % 0.0-5.0 LYMPHOCYTE % (test code=LY%) 17.9 % 25.0-55.0 MONOCYTE % (test code=MO%) 10.8 % 0.0-10.0 EOSINOPHIL % (test code=EO%) 0.9 % 0.0-5.0 BASOPHIL % (test code=BA%) 0.6 % 0.0-1.0 NUCLEATED RBC % (test code=NRBC%) 0.0 % 0-0 NEUTROPHIL # (test code=NT#) 4.86 K/mm3 1.8-7.7 IMMATURE GRANULOCYTE # (test code=IG#) 0.07 x10 3/uL 0-0.03 LYMPHOCYTE # (test code=LY#) 1.26 K/mm3 1.0-5.0 MONOCYTE # (test code=MO#) 0.76 K/mm3 0-0.8 EOSINOPHIL # (test code=EO#) 0.06 K/mm3 0.0-0.5 BASOPHIL # (test code=BA#) 0.04 K/mm3 0.0-0.2 NUCLEATED RBC # (test code=NRBC#) 0.00 K/mm3 0.0-0.1 MANUAL DIFF REQUIRED (test code=MDIFF) NO [id number] 05:59:00* Test Item Value Reference Range Comments GLUBED (test code=GLUBED) 97 mg/dL 74-106 Performed by certified buffing wheel operator at [facility] [id number] 20:41:00* Test Item Value Reference Range Comments GLUBED (test code=GLUBED) 165 mg/dL 74-106 Performed by certified buffing wheel operator at [facility] [id number] 16:42:00* Test Item Value Reference Range Comments GLUBED (test code=GLUBED) 118 mg/dL 74-106 Performed by certified buffing wheel operator at [facility] [id number] 16:42:00* Test Item Value Reference Range Comments GLUBED (test code=GLUBED) 124 mg/dL 74-106 Performed by certified buffing wheel operator at [facility] BASIC METABOLIC [id number] 12:09:00* Test Item Value Reference Range Comments SODIUM (test code=NA) 142 mmol/L 136-145 POTASSIUM (test code=K) 4.1 mmol/L 3.5-5.1 CHLORIDE (test code=CL) 108.0 mmol/L 98-107 CARBON DIOXIDE (test code=CO2) 26.0 mmol/L 21-32 ANION GAP (test code=GAP) 12.1 10-20 GLUCOSE (test code=GLU) 124 mg/dL 74-106 BLOOD UREA NITROGEN (test code=BUN) 22 mg/dL 7-18 GLOMERULAR FILTRATION RATE (test code=GFR) > 60 mL/min >=60 Estimated GFR by using Modified MDRD formula.Chronic kidney disease is defined as either kidney damageor GFR <60 mL/min/1.73 m2 for >3 months. CREATININE (test code=CREAT) 1.10 mg/dL 0.7-1.3 BUN/CREATININE RATIO (test code=BUN/CREA) 20.0 10-20 CALCIUM (test code=CA) 8.2 mg/dL 8.5-10.1 THYROID PROFILE [id number] 12:09:00* Test Item Value Reference Range Comments T3 UPTAKE (test code=T3UP) 32.0 % 30.0-40.0 T4 (THYROXINE) (test code=T4) 9.1 ug/dL 4.5-13.9 T7 (FREE THYROXINE INDEX) (test code=T7) 2.91 FTI 1.3-5.1 THYROID STIMULATING HORMONE (test code=TSH) 2.830 uIU/mL 0.36-3.74 TSH REFERENCE RANGES: EUTHYROID: 0.35 - 4.3 mIU/mL HYPO : > 5.5 mIU/mL HYPER : < 0.35 mIU/mL B-TYPE NATRIURETIC [id number] 12:08:00* Test Item Value Reference Range Comments B-TYPE NATRIURETIC PEPTIDE (test code=BNP) 361.91 pgram/mL 0-100 BASIC METABOLIC [id number] 11:49:00* Test Item Value Reference Range Comments SODIUM (test code=NA) 142 mmol/L 136-145 POTASSIUM (test code=K) 4.1 mmol/L 3.5-5.1 CHLORIDE (test code=CL) 108.0 mmol/L 98-107 CARBON DIOXIDE (test code=CO2) mmol/L 21-32 ANION GAP (test code=GAP) 10-20 GLUCOSE (test code=GLU) mg/dL 74-106 BLOOD UREA NITROGEN (test code=BUN) mg/dL 7-18 GLOMERULAR FILTRATION RATE (test code=GFR) mL/min >=60 CREATININE (test code=CREAT) mg/dL 0.7-1.3 BUN/CREATININE RATIO (test code=BUN/CREA) 10-20 CALCIUM (test code=CA) mg/dL 8.5-10.1 THYROID PROFILE [id number] 11:49:00* Test Item Value Reference Range Comments T3 UPTAKE (test code=T3UP) % 30.0-40.0 T4 (THYROXINE) (test code=T4) ug/dL 4.5-13.9 T7 (FREE THYROXINE INDEX) (test code=T7) FTI 1.3-5.1 THYROID STIMULATING HORMONE (test code=TSH) uIU/mL 0.36-3.74 CBC W/AUTO [id number] 11:21:00* Test Item Value Reference Range Comments WHITE BLOOD CELL (test code=WBC) 11.1 K/mm3 4.5-12.5 RED BLOOD CELL (test code=RBC) 3.32 mill/mm3 4.0-5.8 HEMOGLOBIN (test code=HGB) 11.1 gram/dL 13.0-17.5 HEMATOCRIT (test code=HCT) 34.5 % 42.0-52.0 MEAN CELL VOLUME (test code=MCV) 103.9 fL 80-98 MEAN CELL HGB (test code=MCH) 33.4 picogram 27.0-33.0 MEAN CELL HGB CONCETRATION (test code=MCHC) 32.2 gram/dL 33.0-36.0 RED CELL DISTRIBUTION WIDTH (test code=RDW) 14.4 % 11.6-16.2 RED CELL DISTRIBUTION WIDTH SD (test code=RDW-SD) 54.4 fL 37.0-51.0 PLATELET COUNT (test code=PLT) 154 K/mm3 150-450 MEAN PLATELET VOLUME (test code=MPV) 10.1 fL 6.7-11.0 NEUTROPHIL % (test code=NT%) 82.3 % 39.0-69.0 IMMATURE GRANULOCYTE % (test code=IG%) 1.0 % 0.0-5.0 LYMPHOCYTE % (test code=LY%) 8.9 % 25.0-55.0 MONOCYTE % (test code=MO%) 7.6 % 0.0-10.0 EOSINOPHIL % (test code=EO%) 0.0 % 0.0-5.0 BASOPHIL % (test code=BA%) 0.2 % 0.0-1.0 NUCLEATED RBC % (test code=NRBC%) 0.0 % 0-0 NEUTROPHIL # (test code=NT#) 9.12 K/mm3 1.8-7.7 IMMATURE GRANULOCYTE # (test code=IG#) 0.11 x10 3/uL 0-0.03 LYMPHOCYTE # (test code=LY#) 0.98 K/mm3 1.0-5.0 MONOCYTE # (test code=MO#) 0.84 K/mm3 0-0.8 EOSINOPHIL # (test code=EO#) 0.00 K/mm3 0.0-0.5 BASOPHIL # (test code=BA#) 0.02 K/mm3 0.0-0.2 NUCLEATED RBC # (test code=NRBC#) 0.00 K/mm3 0.0-0.1 MANUAL DIFF REQUIRED (test code=MDIFF) NO - CTA CHEST FOR [id number] 10:37:00 Name: VIC RIVAS [facility] : 1945 Age/S: 74 / M [address] [facility] Unit #: [id number] Loc: [place], [place] [address] Phys: Romel Medley MD Acct: [id number] Dis Date: Status: ADM IN PHONE #: [phone] Exam Date: 10/04/2019 1014 FAX #: [phone] Reason: D-DIMER 185 EXAMS: CPT CODE: [id number] [place] [id number] REASON FOR EXAM: D-DIMER 185 EXAM ORDER DATE: 10/04/2019 7:40 PM Ordering M.DSachi: Romel Medley MD PROCEDURE: - CTA CHEST FOR PE Comparison:Frontal chest x-ray [address] images of the chest were obtained with IV contrast utilizing a PE protocol. Reconstructed sagittal and coronal images of the chest were provided for interpretation. Dose reduction techniques were applied. FINDINGS: Visualized neck: Normal Airways, Lungs and Pleura: Small to moderate-sized pleural effusion on the right side and a small left-sided pleural effusion. There is compressive atelectasis of the underlying lungs. There are also groundglass opacities throughout both lungs that are worse on the right side. Central airways are patent. Heart, great vessels, pulmonary vessels, mediastinum: No pulmonary embolism. No evidence of pulmonary arterial hypertension. Mild coronary atherosclerosis. Thoracic aorta is within normal limits. Cardiac chambers are increased in size relative to the thorax. Lymph nodes: No a xillary, hilar, or internal mammary adenopathy. There are a few subcentime ter mediastinal lymph nodes which are nonspecific and may be reactive. Musculoskeletal/chest wall: Degenerative changes are seen throughout the visualized spine. Visualized upper abdomen: Normal IMPRESSION: No evidence of pulmonary embolism or pulmonary arterial hypertension. Diffuse airspace opacities bilate rally may represent pulmonary edema. PAGE 1 Signed Re port (CONTINUED) Name: VIC RIVAS [facility] : 1945 Age/S: 74 / M [address] [facility] Unit #: [id number] Loc: [place] [address] Phys: Romel Medley MD Acct: [id number] Dis Date: Status: ADM IN PHONE #: [phone] Exam Date: 10/04/2019 1014 FAX #: [phone] Reason: D-DIMER 1852 EXAMS: CPT CODE: [id number] [place] [id number] <Continued> Given the presence of bilateral pleural effusions as well as cardiomegaly, these findings may represent CHF. Superimposed pneumonia cannot be excluded. Mild coronary atherosclerosis. Location: [facility] at 1037 Reported and signed by: Fazal Gardner MD CC: Alexys Ozuna MD; Romel Medley MD Technologist:Nia Coates RT(R)(CT) CTDI: DLP: Trnscb Date/Time: 10/04/2019 (1037) [email or web address] Orig Print D/T: S: 10/04/2019 (1040) PAGE 2 Signed Report [id number] 05:22:00* Test Item Value Reference Range Comments GLUBED (test code=GLUBED) 129 mg/dL 74-106 Performed by certified buffing wheel operator at [facility] [id number] 23:26:00* Test Item Value Reference Range Comments TROPONIN-I (test code=TROPI) 0.164 ng/mL 0-0.045 [id number] 20:17:00* Test Item Value Reference Range Comments GLUBED (test code=GLUBED) 165 mg/dL 74-106 Performed by certified buffing wheel operator at [facility] [id number] 19:21:00* Test Item Value Reference Range Comments D-DIMER (test code=DDIMER) 1852.00 ng/mLFEU 0-500 Results called to [id number] by MELANIE 10/03/19 1920Critical results verified and read back by Nurse? YClinical Cut-off value for D-Dimer is 500 ng/mL FEU. Comment: The [employer] D- Dimer assay is intended for use asan aid in the diagnosis of venous thromboembolism (VTE)[deep vein thrombosis (DVT) or pulmonary embolism (PE)].The measurement of D-Dimer should not be used as an aid inthe diagnosis of VTE, in patient with: -Therapeutic dose anticoagulant therapy for >24 hours - Fibrinolytic therapy within previous 7 days -Trauma or surgery within previous 4 weeks -Disseminated malignancies -Aortic aneurysm -Sepsis, severe infections, pneumonia, severe skin infections -Liver cirrhosis - [id number] 18:10:00* Test Item Value Reference Range Comments GLYCOSYLATED HEMOGLOBIN (HA1C) (test code=GLYHGB) 5.7 % HbA1 4.8-6.0 ESTIMATED AVERAGE GLUCOSE (test code=EAG) 117 MG/DL [id number] 16:56:00* Test Item Value Reference Range Comments GLUBED (test code=GLUBED) 148 mg/dL 74-106 Performed by certified buffing wheel operator at [facility] [id number] 16:02:00* Test Item Value Reference Range Comments TROPONIN-I (test code=TROPI) 0.236 ng/mL 0-0.045 PREVIOUSLY CALLED [id number] 12:13:00* Test Item Value Reference Range Comments GLUBED (test code=GLUBED) 169 mg/dL 74-106 Performed by certified buffing wheel operator at [facility] CPK-MB [id number] 10:59:00* Test Item Value Reference Range Comments CREATINE KINASE (CK) (test code=CK) 127 IUnit/L 26-208 CKMB (test code=CKMBT) 4.2 ng/mL 0-6.0 RELATIVE % INDEX (test code=REL%) 3.31 % 0.00-2.50 "If the total CK is elevated, the CKMB Fraction must beinterpreted as a Relative % Index, Normal is less than 2.5%"NOTE: Relative % Index is not valid with a normal total CK. [id number] 10:59:00* Test Item Value Reference Range Comments TROPONIN-I (test code=TROPI) 0.297 ng/mL 0-0.045 [id number] 06:11:00* Test Item Value Reference Range Comments GLUBED (test code=GLUBED) 144 mg/dL 74-106 Performed by certified buffing wheel operator at [facility] [id number] 05:44:00* Test Item Value Reference Range Comments TROPONIN-I (test code=TROPI) 0.392 ng/mL 0-0.045 Results called to [id number] by [email or web address] 10/03/19 0543Critical results verified and read back by Nurse? Y COMMENTS TO PEER COUNSELOR: COLLECT 3 HOURS AFTER PREVIOUS SAMPLE- XR CHEST 1 [id number] 00:30:00 FAX: Alexys Chandra MD [phone] Lane: [place] St: REG FAX: Marek Rodriguez DO [phone] Name: VIC RIVAS [facility] : 1945 Age/S: 74/M [address] [facility] [address] Unit #: [id number] Loc: V.NCER [address] Phys: PhoenixMarek DO [place], [place] [address] Acct: [id number] Dis Date: Status: REG ER PHONE #: Exam Date: 10/02/2019 0011 FAX #: Reason: Shortness of Breath EXAMS: CPT CODE: [id number] XR CHEST 1 V [id number] EXAM: - XR CHEST 1 V HISTORY: Shortness of breath. COMPARISON: February 24, 2013. FINDINGS: Single AP view of the chest is provided. Right perihilar and lower lung infiltrate may represent pneumonia. Heart size and vascularity are within normal limits. No definite pleural effusion, pneumothorax, or acute os seous abnormality. IMPRESSION: Right lung infiltrate may represent pneumonia. at 0030 Reported and signed by: Micheal Sandhu MD CC: Alexys Ozuna MD; Marek Phoenix DO Technologist: Vic Velasco Trnwird Date/Time/By: 10/03/2019 (0030) : By: [email or web address] Orig Print D/T: S: 10/03/2019 (0033) PAGE 1 Signed Report LACTIC [id number] 00:14:00 * Test Item Value Reference Range Comments LACTIC ACID (test code=LACT) 1.7 MMOL/L 0.4-1.9 BASIC METABOLIC [id number] 00:13:00* Test Item Value Reference Range Comments SODIUM (test code=NA) 139 mmol/L 128-145 POTASSIUM (test code=K) 3.2 mmol/L 3.5-5.1 CHLORIDE (test code=CL) 102.0 mmol/L 98-107 CARBON DIOXIDE (test code=CO2) 27.7 mmol/L 22-29 ANION GAP (test code=GAP) 13 mmol/L 10-20 GLUCOSE (test code=GLU) 127 mg/dL 70-110 BLOOD UREA NITROGEN (test code=BUN) 13 mg/dL 7-22 GLOMERULAR FILTRATION RATE (test code=GFR) 57 mL/min >=60 Estimated GFR by using Modified MDRD formula.Chronic kidney disease is defined as either kidney damageor GFR <60 mL/min/1.73 m2 for >3 months. CREATININE (test code=CREAT) 1.24 mg/dL 0.55-1.3 BUN/CREATININE RATIO (test code=BUN/CREA) 10.5 10-20 CALCIUM (test code=CA) 8.1 mg/dL 8.0-10.5 HEPATIC FUNCTION [id number] 00:13:00* Test Item Value Reference Range Comments TOTAL PROTEIN (test code=PROT) 7.4 gram/dL 6.1-7.8 ALBUMIN (test code=ALB) 3.3 g/dL 3.3-4.4 GLOBULIN (test code=GLOB) 4.1 G/DL 1-10 ALBUMIN/GLOBULIN RATIO (test code=A/G) 0.8 0.75-1.50 BILIRUBIN TOTAL (test code=BILT) 0.40 mg/dL 0.2-1.2 BILIRUBIN DIRECT (test code=BILD) 0.10 mg/dL 0.0-0.30 SGOT/AST (test code=AST) 42 U/L 10-39 SGPT/ALT (test code=ALT) 28 U/L 10-69 ALKALINE PHOSPHATASE TOTAL (test code=ALKP) 121 U/L 50-139 [id number] 00:13:00* Test Item Value Reference Range Comments MAGNESIUM (test code=MAG) 2.5 mg/dL 1.4-2.2 [id number] 00:13:00* Test Item Value Reference Range Comments TROPONIN-I (test code=TROPI) 0.06 ng/mL 0.00-0.056 Results called to [id number] by V.LAB.PG 10/03/19 0012Critical results verified and read back by Nurse? Y B-TYPE NATRIURETIC [id number] 00:09:00* Test Item Value Reference Range Comments B-TYPE NATRIURETIC PEPTIDE (test code=BNP) 256 pg/mL 0-100 PROTHROMBIN [id number] 00:07:00* Test Item Value Reference Range Comments PROTHROMBIN TIME PATIENT (test code=PTP) 10.8 seconds 9.0-14.0 INTERNATIONAL NORMAL RATIO (test code=INR) 1.1 0.8-1.2 The therapeutic range for oral anticoagulant therapy formost indications is an international normalized ratio (INR)of between 2.0 and 3.0. The recommended therapeutic INRrange for various clinical situations is listed below: Clinical Situation INR range Pulmonary e mbolism treatment (2.0-3.0)Venous thrombosis treatmentVenous thrombosis prophylaxis (high risk surgery)Prevention of systemic embolism from: Acute myocardial infarction Valvular heart disease Atrial fibrillation Mechanical prosthetic heart valves (2.5-3.5) IS PATIENT ON ANTICOAGULANTS? NTHROMBOPLASTIN TIME [id number] 00:07:00* Test Item Value Reference Range Comments THROMBOPLASTIN TIME PARTIAL (test code=PTT) 22.5 seconds 25.0-36.5 IS PATIENT ON ANTICOAGULANTS? NBASIC METABOLIC [id number] 00:05:00* Test Item Value Reference Range Comments SODIUM (test code=NA) 139 mmol/L 128-145 POTASSIUM (test code=K) 3.2 mmol/L 3.5-5.1 CHLORIDE (test code=CL) 102.0 mmol/L 98-107 CARBON DIOXIDE (test code=CO2) 27.7 mmol/L 22-29 ANION GAP (test code=GAP) 13 mmol/L 10-20 GLUCOSE (test code=GLU) 127 mg/dL 70-110 BLOOD UREA NITROGEN (test code=BUN) 13 mg/dL 7-22 GLOMERULAR FILTRATION RATE (test code=GFR) 57 mL/min >=60 Estimated GFR by using Modified MDRD formula.Chronic kidney disease is defined as either kidney damageor GFR <60 mL/min/1.73 m2 for >3 months. CREATININE (test code=CREAT) 1.24 mg/dL 0.55-1.3 BUN/CREATININE RATIO (test code=BUN/CREA) 10.5 10-20 CALCIUM (test code=CA) 8.1 mg/dL 8.0-10.5 HEPATIC FUNCTION [id number] 00:05:00* Test Item Value Reference Range Comments TOTAL PROTEIN (test code=PROT) gram/dL 6.4-8.2 ALBUMIN (test code=ALB) g/dL 3.4-5.0 GLOBULIN (test code=GLOB) G/DL 1-10 ALBUMIN/GLOBULIN RATIO (test code=A/G) 0.75-1.50 BILIRUBIN TOTAL (test code=BILT) mg/dL 0.0-1.0 BILIRUBIN DIRECT (test code=BILD) mg/dL 0.0-0.20 SGOT/AST (test code=AST) IUnit/L 15-37 SGPT/ALT (test code=ALT) IUnit/L 12-78 ALKALINE PHOSPHATASE TOTAL (test code=ALKP) IUnit/L 45-117 [id number] 00:05:00* Test Item Value Reference Range Comments MAGNESIUM (test code=MAG) mg/dL 1.8-2.4 [id number] 00:05:00* Test Item Value Reference Range Comments TROPONIN-I (test code=TROPI) ng/mL 0-0.045 CBC W/O [id number] 23:54:00* Test Item Value Reference Range Comments WHITE BLOOD CELL (test code=WBC) 6.3 K/mm3 4.5-12.5 RED BLOOD CELL (test code=RBC) 3.56 mill/mm3 4.0-5.8 HEMOGLOBIN (test code=HGB) 11.8 gram/dL 13.0-17.5 HEMATOCRIT (test code=HCT) 35.8 % 42.0-52.0 MEAN CELL VOLUME (test code=MCV) 100.6 fL 80-98 MEAN CELL HGB (test code=MCH) 33.1 picogram 27.0-33.0 MEAN CELL HGB CONCETRATION (test code=MCHC) 33.0 gram/dL 33.0-36.0 RED CELL DISTRIBUTION WIDTH (test code=RDW) 13.7 % 11.6-16.2 RED CELL DISTRIBUTION WIDTH SD (test code=RDW-SD) 49.9 fL 37.0-51.0 PLATELET COUNT (test code=PLT) 137 K/mm3 150-450 CHECKED SAMPLE. NO CLOT DETECTED. V.LAB.PG 10/02/19 6320 MEAN PLATELET VOLUME (test code=MPV) 9.8 fL 6.7-11.0
[2020-01-18 08:35] VITALS: BP 146/78
--- NOTE | 2020-01-18 14:28 | Operative Report ---
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 POSTOPERATIVE DIAGNOSIS: Osteomyelitis, 5th metatarsophalangeal joint, left foot. OPERATIVE PROCEDURES: Amputation of the 5th ray, left foot and also a rotational skin graft on the lateral aspect of the left foot. DESCRIPTION OF PROCEDURE: The patient was placed on the OR table in the supine position. The left lower extremity was prepped and draped in the usual manner. A general anesthetic was administered and hemostasis accomplished with an Esmarch bandage. An incision was started on the medial aspect of the 5th toe, approximately midshaft proximal phalanx. It was extended proximally through the area between the 1st and 2nd toe and then it lifted around the ulcer on the plantar aspect of the 5th metatarsal head. The incision was then extended plantarly and up the lateral aspect of the proximal phalanx and then extended proximally, curving around the plantar ulcer. The soft tissue was then dissected away from the 5th toe and it was disarticulated at the metatarsophalangeal joint and removed in total. The soft tissue was then dissected away from the 5th metatarsal head and utilizing a power saw, the head and approximately the distal one-third of the 5th metatarsal was removed. The remaining bone appeared healthy. The necrotic tissue that was surrounding the 5th metatarsal head was removed. At this time, rotational skin flap was created utilizing the skin around the proximal phalanx of the 5th toe. The wound was then flushed extensively with saline solution with bacitracin antibiotic. The flap was then rotated covering the large deficit or the metatarsal head was removed. The entire wound was then closed with 3-0 nylon. After the procedure, 10 mL of 0.5 Marcaine were injected to minimize postop pain. A sterile compression was then applied. At this time, the Esmarch bandage was released and reflex hyperemia was observed to the remaining four toes. The patient tolerated the procedure and anesthesia well and left the OR to recovery in good condition with vital signs stable. Janett Joseph DPM ([place]) SH/MODL /[id number]
== END | disposition home or self-care (01) ==
LOC: OR 05:00
PROVIDERS: ATTEND Podiatrist Foot & Ankle Surgery
DX: M86.071 Acute hematogenous osteomyelitis, right ankle and foot (principal); G47.33 Obstructive sleep apnea (adult) (pediatric); I25.10 Atherosclerotic heart disease of native coronary artery without angina pectoris; E78.5 Hyperlipidemia, unspecified; K21.9 Gastro-esophageal reflux disease without esophagitis; E11.22 Type 2 diabetes mellitus with diabetic chronic kidney disease; I12.9 Hypertensive chronic kidney disease with stage 1 through stage 4 chronic kidney disease, or unspecified chronic kidney disease; N18.9 Chronic kidney disease, unspecified; E66.01 Morbid (severe) obesity due to excess calories; F43.10 Post-traumatic stress disorder, unspecified; F32.9 Major depressive disorder, single episode, unspecified; F41.9 Anxiety disorder, unspecified; Z01.812 Encounter for preprocedural laboratory examination; Z01.818 Encounter for other preprocedural examination; Z79.82 Long term (current) use of aspirin; Z95.5 Presence of coronary angioplasty implant and graft; Z87.891 Personal history of nicotine dependence
CPT/HCPCS: 28810; 36415; 71046; 80048; 85025; 87071; 87075; 87205; 88305; 88311; J0690; J1100; J2001; J2405; J2704; 88304

== ENCOUNTER 2020-01-19 06:12 | Inpatient (IN) | payer MEDICARE, OTHER ==
[2020-01-14 06:59] LABS: BASOPHILS % 0.4 % (0.0-1.0); EOSINOPHILS # (AUTO) 0.2 (0.0-0.4); EOSINOPHILS % 2.6 % (0.0-6.0); HEMOGLOBIN 12.3 g/dL (14.0-18.0); LYMPHOCYTES # (AUTO) 2.1 (1.0-3.2); LYMPHOCYTES % 31.1 % (18.0-39.1); MEAN CORPUSCULAR HEMOGLOBIN 32.7 pg (28-32); MEAN CORPUSCULAR HGB CONC 32.4 g/dL (31-35); MEAN CORPUSCULAR VOLUME 101.1 fL (81-99); MONOCYTES # (AUTO) 0.8 (0.2-0.8); MONOCYTES % 12.2 % (4.4-11.3); NEUTROPHILS # (AUTO) 3.6 (2.1-6.9); PLATELET COUNT 213 x10e3/uL (140-360); RED BLOOD COUNT 3.76 x10e6/uL (4.3-5.7); RED CELL DISTRIBUTION WIDTH 12.8 % (11.7-14.4)
[2020-01-14 07:50] LABS: ANION GAP 16.9 mmol/L (8-16); CALCIUM 9.6 mg/dL (8.4-10.2); CREATININE, SERUM 1.78 mg/dL (0.72-1.25); POTASSIUM 4.9 mmol/L (3.5-5.1)
[~2020-01-19] VITALS: Ht 177.8 cm; Wt 73.0 kg
[~2020-01-19 06:12] MED LIST changes: -ACETAMINOPHEN PO; -BACITRACIN 50,000 UNIT VIAL ONE; -BUPIVACAINE HCL 0.5% INJ 30 ML VIAL INJ ONE; -CEFAZOLIN SOD 1 GM/NS 50ML 50 ML IV ONE; -CEPHALEXIN500 MG PO; -DEXAMETHASONE SOD PHOS INJ 4 MG/ML VIAL ONE; -ESMOLOL HCL 100MG/10ML 10 MG/ML VIAL ONE; -LIDOCAINE HCL 2% LOCAL INJ 5 ML SDV VIAL INJ ONE; -NAPROXEN500 M1 PO; -ONDANSETRON HCL INJ 2MG/ML 2ML 2 MG/ML VIAL ONE; -PROPOFOL IV EMULSION 10 MG/ML 20 ML VIAL ONE; -SEVOFLURANE INHAL SOLN 250 ML PEN BTL ONE
[2020-01-19] MEDS ORDERED: CEFTRIAXONE SOD 1 GM/NS 50 ML 50 ML IV ONE (06:40)
[2020-01-19] MEDS ORDERED: GENTAMICIN 80MG/NS 100 ML 100 ML IV ONE (06:41)
[2020-01-19] MEDS ORDERED: SODIUM CHLORIDE 0.9% 1000ML 1,000 ML ONE (06:41)
[2020-01-19] MEDS ORDERED: CEPHALEXIN500 MG PO (07:05)
[2020-01-19] MEDS ORDERED: ACETAMINOPHEN PO (07:05)
[2020-01-19] MEDS ORDERED: NAPROXEN500 M1 PO (07:05)
[2020-01-19 07:13] LABS: ANION GAP 12.7 mmol/L (8-16); CALCIUM 9.4 mg/dL (8.4-10.2); CREATININE, SERUM 1.69 mg/dL (0.72-1.25)
[2020-01-19 07:16] LABS: POTASSIUM 5.7 mmol/L (3.5-5.1)
[2020-01-19] MEDS ORDERED: B&O 60MG R/S 60 MG SUPP PR ONE (09:31)
[2020-01-19] MEDS ORDERED: IOPAMIDOL 300MG/ML 50ML INFUS..BTL IV ONE (09:32)
[2020-01-19] MEDS ORDERED: ACETAMINOPHEN/CODEINE 300MG - 30MG TAB PO PRN (11:45)
[2020-01-19] MEDS ORDERED: ONDANSETRON HCL INJ 2MG/ML 2ML 2 MG/ML VIAL IV PRN (11:45)
[2020-01-19] MEDS ORDERED: B&O 60MG R/S 60 MG SUPP PR PRN (11:45)
[2020-01-19] MEDS ORDERED: DIPHENHYDRAMINE HCL 25 MG CAP PO PRN (11:45)
--- NOTE | 2020-01-19 13:05 | NUR ---
RECEIVED TO RM AAOX3 NO DISTRESS NOTED, UPDATED ON POC VOICED UNDERSTANDING, CBI INFUSING TO 22G ROJAS PINK TINGE URINE NOTED, IVF TO R FA 20G NO SS OF INFILTRATION NOTED, NO OTHER CO VOICED CALL LIGHT IN REACH WILL CONTINUE TO MONITOR
[2020-01-19] MEDS: PHENAZOPYRIDINE HCL 100 MG TAB PO SCH ×2 (13:20→17:17)
[2020-01-19] MEDS: SODIUM CHLORIDE 0.9% 1000ML 1,000 ML IV SCH ×2 (13:20→23:49)
[2020-01-19 13:51] LABS: BASOPHILS % 0.3 % (0.0-1.0); EOSINOPHILS # (AUTO) 0.1 (0.0-0.4); EOSINOPHILS % 1.2 % (0.0-6.0); HEMATOCRIT 37.2 % (38.2-49.6); LYMPHOCYTES # (AUTO) 0.9 (1.0-3.2); LYMPHOCYTES % 13.3 % (18.0-39.1); MEAN CORPUSCULAR HEMOGLOBIN 33.1 pg (28-32); MEAN CORPUSCULAR HGB CONC 32.3 g/dL (31-35); MEAN CORPUSCULAR VOLUME 102.8 fL (81-99); MONOCYTES # (AUTO) 0.2 (0.2-0.8); MONOCYTES % 2.3 % (4.4-11.3); NEUTROPHILS # (AUTO) 5.4 (2.1-6.9); PLATELET COUNT 175 x10e3/uL (140-360); RED BLOOD COUNT 3.62 x10e6/uL (4.3-5.7); RED CELL DISTRIBUTION WIDTH 12.9 % (11.7-14.4)
[2020-01-19] MEDS ORDERED: ACETAMINOPHEN 1000 MG/100 ML IV PRN (14:00)
[2020-01-19 14:04] LABS: ANION GAP 13.7 mmol/L (8-16); CALCIUM 8.8 mg/dL (8.4-10.2); CREATININE, SERUM 1.63 mg/dL (0.72-1.25); POTASSIUM 5.7 mmol/L (3.5-5.1)
[2020-01-19 14:32] VITALS: BP 152/68
[2020-01-19 14:36] VITALS: BP 152/68
--- NOTE | 2020-01-19 15:30 | NUR ---
16F ROJAS INSERTED PER ORDERED, PT TOLERATED WELL, 700CC OF CLEAR YELLOW URINE NOTED UPON INSERTION, WILL CONTINUE TO MONITOR Addendum: 01/19/20 at 1539 by Pamela Blevins RN DOCUMENTED ON WRONG PATIENT
[2020-01-19 15:48] VITALS: BP 117/68
[2020-01-19] MEDS: DOCUSATE SODIUM 100 MG CAP PO SCH (17:17)
[2020-01-19] MEDS ORDERED: LIDOCAINE HCL 2% LOCAL INJ 5 ML SDV VIAL INJ ONE (17:50)
[2020-01-19] MEDS ORDERED: ONDANSETRON HCL INJ 2MG/ML 2ML 2 MG/ML VIAL ONE (17:50)
[2020-01-19] MEDS ORDERED: DEXAMETHASONE SOD PHOS INJ 4 MG/ML VIAL ONE (17:50)
[2020-01-19] MEDS ORDERED: SEVOFLURANE INHAL SOLN 250 ML PEN BTL ONE (17:50)
[2020-01-19] MEDS ORDERED: PROPOFOL IV EMULSION 10 MG/ML 20 ML VIAL ONE (17:50)
[2020-01-19] MEDS ORDERED: FENTANYL CITRATE/PF 100MCG/2 ML INJ ONE (18:31)
--- NOTE | 2020-01-19 19:00 | NUR ---
RECEIVED PATIENT IN BEDSIDE SHIFT REPORT. PATIENT RESTING IN BED AT THIS TIME. MILD PAIN REPORTED TO L FOOT S/P 5TH TOE AMPUTATION YESTERDAY. SURGICAL DRESSING IN PLACE, CAP REFILL BRISK. NO SWELLING NOTED, FOOT ELEVATED ON PILLOW. CBI RUNNING, DRAINING PLATA URINE, NO CLOTS NOTED. PATIENT REPORTS SOME BLADDER PAIN, INCREASED FLOW, STILL NO CLOTS NOTED, ROJAS PATENT AND DRAINING, HANGING OFF FLOOR. NO S&S OF DISTRESS NOTED. BED LOCKED IN LOWEST POSITION, SIDE RAILS UPX2, CALL LIGHT IN REACH.
[2020-01-19 20:00] VITALS: BP 132/63
[2020-01-19 20:43] VITALS: BP 132/63
[2020-01-20] VITALS (8 sets, daily range): BP systolic 123–143; BP diastolic 59–76
[2020-01-20] MEDS ORDERED: CEFTRIAXONE SOD 1 GM/NS 50 ML 50 ML IV SCH (09:00)
[2020-01-20 09:11] LABS: BASOPHILS % 0.1 % (0.0-1.0); EOSINOPHILS % 0.1 % (0.0-6.0); HEMATOCRIT 34.7 % (38.2-49.6); HEMOGLOBIN 11.2 g/dL (14.0-18.0); LYMPHOCYTES # (AUTO) 1.4 (1.0-3.2); LYMPHOCYTES % 13.5 % (18.0-39.1); MEAN CORPUSCULAR HEMOGLOBIN 32.7 pg (28-32); MEAN CORPUSCULAR HGB CONC 32.3 g/dL (31-35); MEAN CORPUSCULAR VOLUME 101.5 fL (81-99); MONOCYTES # (AUTO) 0.8 (0.2-0.8); NEUTROPHILS # (AUTO) 8.1 (2.1-6.9); NEUTROPHILS % 77.7 % (38.7-80.0); PLATELET COUNT 190 x10e3/uL (140-360); RED BLOOD COUNT 3.42 x10e6/uL (4.3-5.7); RED CELL DISTRIBUTION WIDTH 12.7 % (11.7-14.4)
[2020-01-20] MEDS ORDERED: LORAZEPAM 0.5 MG TAB PO PRN (09:15)
[2020-01-20] MEDS ORDERED: ONDANSETRON HCL INJ 2MG/ML 2ML 2 MG/ML VIAL IV PRN (09:15)
[2020-01-20 09:23] LABS: ANION GAP 11.2 mmol/L (8-16); CALCIUM 8.6 mg/dL (8.4-10.2); CREATININE, SERUM 1.4 mg/dL (0.72-1.25); POTASSIUM 5.2 mmol/L (3.5-5.1)
[2020-01-20] MEDS: DOCUSATE SODIUM 100 MG CAP PO SCH ×2 (09:30→17:40)
[2020-01-20] MEDS: PHENAZOPYRIDINE HCL 100 MG TAB PO SCH ×3 (09:30→17:42)
[2020-01-20] MEDS: SODIUM CHLORIDE 0.9% 1000ML 1,000 ML IV SCH (09:30)
[2020-01-20] MEDS: ISOSORBIDE MONONITRATE 30 MG TAB CR PO SCH (10:00)
[2020-01-20] MEDS: PIPER-TAZ 3.375 GM 50 ML IV SCH ×3 (10:00→21:54)
[2020-01-20] MEDS: TAMSULOSIN HCL 0.4 MG CAP PO SCH ×2 (10:00→17:40)
[2020-01-20] MEDS ORDERED: SOD POLYSTYRENE SULFONATE SUSP 15 GM/60 ML BTL PO ONE (10:20)
[2020-01-20] MEDS: VANCOMYCIN 1GM/NS 250 ML 250 ML IV SCH (10:56)
[2020-01-20] MEDS ORDERED: LEVOTHYROXINE SODIUM 50 MCG TAB PO SCH (11:30)
--- NOTE | 2020-01-20 14:01 | Progress Note ---
DATE: 01/20/2020 Postoperative Progress Note SUBJECTIVE: This is a 74-year-old male with past medical history of osteomyelitis to the left lower extremity, who underwent a left partial 5th ray amputation on 01/18/2020, and underwent a surgery per Dr. Diaz yesterday and was admitted postoperatively. The Podiatry is being consulted to monitor the surgery that was done on the left foot 2 days ago. The patient relates no pain to the left foot. He relates to no issues postoperatively. He currently denies nausea, vomiting, fever, chills, chest pain, or shortness of breath. PHYSICAL EXAMINATION: GENERAL: Alert and oriented x3, in no apparent distress. VITAL SIGNS: Today, temperature 98.1, heart rate is 57, respiratory rate 20, blood pressure 143/64, and pulse ox is 96% on room air. Problem focused lower extremity physical exam: VASCULAR: Dorsalis pedis and posterior tibial pulses are faintly palpable. Capillary refill time is less than 2 seconds in all remaining digits. Negative erythema, edema, or warmth is noted to the left lower extremity. NEUROLOGICAL: Sensation is diminished to the level of digits. MUSCULOSKELETAL: Left partial 5th ray resection. Negative pain on palpation. DERMATOLOGICAL: Incision sites noted to the left foot. Sutures are in place and intact. There is no evidence of periwound erythema, edema, or drainage. No evidence of wound dehiscence. LABORATORY DATA: White blood cell count 10.42, hemoglobin 11.2, hematocrit 34.7, and platelet count 190. Sodium 135, potassium 5.2, chloride 107, CO2 22, BUN 20, creatinine 1.4, and glucose 225. ASSESSMENT: 1. Left foot 5th metatarsal osteomyelitis. 2. Two days status post left foot partial 5th ray amputation. PLAN: The patient was seen and evaluated. Discussed condition and treatment options with the patient in detail. At this time, a dry sterile dressing change was performed to the patient's left foot with Betadine wet-to-dry fashion. All sutures were in place and intact. No evidence of wound dehiscence. No local acute signs of infection. We will recommend continued postoperative care including nonweightbearing to the left lower extremity. We will leave the dressing clean, dry, and intact. I do not recommend further dressing changes. The patient is stable to be discharge from Podiatry standpoint. PATRICIA Pearson /[id number]
[2020-01-20] MEDS: RANOLAZINE 500 MG TABSR PO SCH (17:41)
--- NOTE | 2020-01-20 19:00 | NUR ---
RECEIVED PATIENT IN BEDSIDE SHIFT REPORT. PATIENT RESTING IN BED AT THIS TIME. NO PAIN REPORTED. NO S&S OF DISTRESS NOTED. NO BM YET, WILL CONTINUE TO MONITOR. CBI RUNNING, CLEAR ORANGE URINE NOTED, NO CLOTS, ROJAS BANG HANGING ON SIDE OF BED, OFF OF FLOOR. BED LOCKED IN LOWEST POSITION, SIDE RAILS UPX2, CALL LIGHT IN REACH.
[2020-01-20] MEDS ORDERED: MIRTAZAPINE 15 MG TAB PO SCH (21:00)
[2020-01-20] MEDS ORDERED: METOPROLOL SUCCINATE 25 MG TAB XL PO SCH (21:00)
[2020-01-20] MEDS ORDERED: SERTRALINE HCL 100 MG TAB PO SCH (21:00)
[2020-01-20] MEDS ORDERED: ATORVASTATIN 40 MG TAB PO SCH (21:00)
[2020-01-20] MEDS ORDERED: HYDROXYZINE HCL 25 MG TAB PO SCH (21:00)
--- NOTE | 2020-01-20 23:13 | NUR ---
PATIENT ATTEMPTED TO HAVE BM, STILL JUST GAS. PROVIDED PRUNE JUICE PER PATIENT REQUEST TO AID IN BM.
[2020-01-21] VITALS: BP 113/62
[2020-01-21] MEDS: SODIUM CHLORIDE 0.9% 1000ML 1,000 ML IV SCH ×2 (01:41→14:25)
[2020-01-21 04:00] VITALS: BP 167/80
[2020-01-21] MEDS: PIPER-TAZ 3.375 GM 50 ML IV SCH ×3 (04:37→16:39)
[2020-01-21] MEDS ORDERED: LEVOTHYROXINE SODIUM 50 MCG TAB PO SCH (06:00)
[2020-01-21 06:08] LABS: BASOPHILS % 0.5 % (0.0-1.0); EOSINOPHILS # (AUTO) 0.2 (0.0-0.4); EOSINOPHILS % 2.8 % (0.0-6.0); HEMATOCRIT 34.2 % (38.2-49.6); HEMOGLOBIN 10.7 g/dL (14.0-18.0); LYMPHOCYTES # (AUTO) 1.5 (1.0-3.2); MEAN CORPUSCULAR HEMOGLOBIN 32.8 pg (28-32); MEAN CORPUSCULAR HGB CONC 31.3 g/dL (31-35); MEAN CORPUSCULAR VOLUME 104.9 fL (81-99); MONOCYTES # (AUTO) 0.6 (0.2-0.8); MONOCYTES % 10.3 % (4.4-11.3); NEUTROPHILS # (AUTO) 3.5 (2.1-6.9); NEUTROPHILS % 59.7 % (38.7-80.0); PLATELET COUNT 151 x10e3/uL (140-360); RED BLOOD COUNT 3.26 x10e6/uL (4.3-5.7); RED CELL DISTRIBUTION WIDTH 13.1 % (11.7-14.4)
[2020-01-21 06:25] LABS: ANION GAP 11.6 mmol/L (8-16); CALCIUM 8.1 mg/dL (8.4-10.2); CREATININE, SERUM 1.22 mg/dL (0.72-1.25); POTASSIUM 4.6 mmol/L (3.5-5.1)
--- NOTE | 2020-01-21 06:46 | NUR ---
RECEIVED BEDSIDE SHIFT REPORT FROM OFF GOING NURSE. PATIENT IS IN STABLE CONDITION, NO ACUTE DISTRESS NOTED. CALL LIGHT WITHIN REACH. BED IN THE LOWEST POSITION.
[2020-01-21 07:36] VITALS: BP 151/73
[2020-01-21] MEDS: DOCUSATE SODIUM 100 MG CAP PO SCH ×2 (08:44→16:39)
[2020-01-21] MEDS: TAMSULOSIN HCL 0.4 MG CAP PO SCH ×2 (08:44→16:39)
[2020-01-21] MEDS: ISOSORBIDE MONONITRATE 30 MG TAB CR PO SCH (08:45)
[2020-01-21] MEDS: PHENAZOPYRIDINE HCL 100 MG TAB PO SCH ×3 (08:45→17:08)
[2020-01-21] MEDS: RANOLAZINE 500 MG TABSR PO SCH ×2 (08:45→16:39)
[2020-01-21] MEDS ORDERED: PRAMIPEXOLE DIHYDROCHLORIDE 1 MG TAB PO SCH (09:00)
[2020-01-21 09:27] VITALS: BP 151/73
[2020-01-21] MEDS: VANCOMYCIN 1GM/NS 250 ML 250 ML IV SCH (10:26)
[2020-01-21 11:58] VITALS: BP 117/70
[2020-01-21 16:00] VITALS: BP 135/79
--- NOTE | 2020-01-21 17:25 | NUR ---
Called Dr. Whaley to notify that Dr. Diaz cleared patient for DC, per MD gutierrez to discharge patient
--- NOTE | 2020-01-21 18:48 | NUR ---
RECEIVED DC ORDER FROM MD. PATIENT IS IN STABLE CONDITION. IV LINE TO RIGHT FOREARM DCD WITH TIP INTACT, PRESSURE APPLIED TO SITE, NO BLEEDING NOTED. DISCHARGE TEACHING PROVIDED TO PATIENT AND , THEY BOTH VERBALIZED UNDERSTANDING. DISCHARGE FOLDER WITH PAPERWORK AND PRESCRIPTIONS ON HAND. PATIENT ACCOMPANIED TO PRIVATE AUTO VIA WHEELCHAIR BY STAFF.
--- NOTE | 2020-01-28 15:26 | Consultation ---
DATE OF CONSULTATION: 01/20/2020 REASON FOR CONSULTATION: Left foot surgery. HISTORY OF PRESENT ILLNESS: This is a 74-year-old male with past medical history of osteomyelitis of the left lower extremity. He underwent a left partial 5th ray amputation on 01/08/[address] Joseph. He then underwent a surgery per Dr. Diaz yesterday and was admitted for postoperative monitoring. Podiatry Service is being consulted to monitor the surgery that was performed on the left foot two days ago. Currently, the patient relates no pain to his left foot. He has been compliant with postoperative instructions including nonweightbearing to the left lower extremity. Currently denies nausea, vomiting, fever, chills, chest pain, or shortness of breath. PHYSICAL EXAMINATION: GENERAL: Alert and oriented x3, in no apparent distress. VITAL SIGNS: Today, temperature 98.1, heart rate 57, respiratory rate 20, blood pressure 143/64, and pulse ox is 96% on room air. PROBLEM FOCUSED LOWER EXTREMITIES PHYSICAL EXAM: VASCULAR : Dorsalis pedis and posterior tibial pulses are faintly palpable. Capillary refill time is less than 2 seconds in all remaining digits. Negative erythema, edema, or warmth is noted to the left lower extremity. NEUROLOGICAL: Sensation is diminished to the level of the digits. MUSCULOSKELETAL: Left partial 5th ray resection. Negative pain on palpation. DERMATOLOGICAL: Incision site noted to the left foot. Sutures are in place and intact. There is no evidence of periwound erythema, edema, or drainage. No evidence of wound dehiscence. LABORATORY DATA: White blood cell count is 10.42, hemoglobin 11.2, hematocrit 34.7, and platelet count 190. Sodium 135, potassium 5.2, chloride 107, CO2 of 22, BUN 20, creatinine 1.4, and glucose 225. ASSESSMENT: Left foot 5th metatarsal osteomyelitis 2 days status post left foot partial 5th ray amputation. PLAN: The patient was seen and evaluated. Discussed condition and treatment options with the patient in detail. At this time, a dry sterile dressing change was performed to the patient's left foot with a Betadine wet-to-dry fashion. All sutures were in place and intact. No evidence of wound dehiscence. No local acute signs of infection. We will recommend continued postoperative care including nonweightbearing to the left lower extremity. We will leave the dressing clean, dry, and intact. I do not recommend further dressing changes. The patient is stable to be discharged from Podiatry standpoint. PATRICIA Pearson/PINEDA /[id number]
--- NOTE | 2020-02-23 01:07 | Operative Report ---
DATE OF PROCEDURE: 01/19/2020 SURGEON: Jeffrey Diaz MD PREOPERATIVE DIAGNOSES: 1. Obstructive benign prostatic hyperplasia. 2. Incomplete bladder emptying. POSTOPERATIVE DIAGNOSES: 1. Obstructive benign prostatic hyperplasia. 2. Incomplete bladder emptying. OPERATION PERFORMED: 1. Cystourethroscopy with bilateral ureteral catheterization and retrograde ureteropyelography (separate procedure performed for the incomplete bladder emptying). 2. Interpretation of retrograde ureteropyelography. 3. Cystourethroscopy with staged and transurethral resection of the prostate(separate procedure performed for the obstructive benign prostatic hyperplasia). ANESTHESIA: General. COMPLICATIONS: None. CLINICAL SUMMARY: Chi Benavides is a complicated 74-year-old man, who has had management by prior urologist. The patient is status post photoselective vaporization of the prostate on three different occasions. 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 The patient is brought to the operating room to perform the above procedures and attempts of being able to keep him catheter free as well with complication free. He is aware of the risks of bleeding, infection, injury to adjacent structures, incontinence, impotence, retrograde ejaculation, need for additional procedures and elected to proceed. OPERATIVE PROCEDURE IN DETAIL: Informed consent was verified. Chi Benavides was properly identified, taken to the operating room, placed on the cystoscopy table in supine position. Anesthesia was uneventfully begun. The patient was then carefully and gently repositioned in the dorsal lithotomy position with all pressure points well padded. His genitalia were prepared and draped in usual sterile fashion. The cystoscope sheath with visual obturator in place was atraumatically inserted. The patient's urethra was guided unremarkable. Distal urethra through the normal sphincteric region through the prostate bed. Prostate bed was obstructed and it was obstructed by scar. The verumontanum was gone. It was previously vaporized or destroyed by prior procedures. Nevertheless, there was visual obstruction with significant scar tissue. We entered the patient's bladder and drained it. Panendoscopy revealed no suspicious mucosal lesions. No tumors. No stones. There were trabeculations noted. Next, Malay catheter was used to cannulate each ureter and retrograde ureteropyelograms were performed. Interpretation of retrograde ureteropyelography contrast was instilled in retrograde fashion bilaterally. There were no tumors, no stones, no diverticula. Unobstructed drainage was observed bilaterally fluoroscopically. J-hooking was noted bilaterally. The cystoscope was withdrawn. The resectoscope was atraumatically placed utilizing an obturator in place. We then utilized the plasma band electrode to perform transurethral resection of prostate from the bladder neck to never pass the verumontanum down through the full thickness of the scar and down to the surgical capsule. Pinpoint electrocautery was utilized to achieve hemostasis. Extra care was taken in the apical portion of the dissection due to the fact that the verumontanum was gone and the main landmark to avoid incontinence was also gone. Wide open prostatic channel was achieved. All chips were evacuated and this was verified endoscopically and the patient was uneventfully reversed from anesthesia and taken to recovery room in stable condition. There were no complications to the procedure. The patient tolerated the procedure well. Continuous irrigation catheter was placed, irrigated to and fro to ensure it worked properly and placed on continuous irrigation with clear efflux. A belladonna and opium suppository were placed revealing 40 g prostate that is smooth, nonfluctuant without any nodules. The patient was then uneventfully reversed from anesthesia and taken to recovery room in stable condition. There were no complications to the procedure well. He tolerated the procedure well. We will proceed with routine postoperative care and of course ongoing urological followup. Jeffrey Diaz MD [place]/MODL /[id number] cc: Dr. Alexys Ozuna
== END 2020-01-21 19:16 | disposition home or self-care (01) | DRG 713 ==
LOC: OR 06:12 → PACU V 11:36 → MED/SURG 13:14
PROVIDERS: ADMIT Internal Medicine; ATTEND Internal Medicine
PROC: 0VT08ZZ Resection of Prostate, Via Natural or Artificial Opening Endoscopic (ICD-10-PCS; principal; 2020-01-19 09:30)
PROC: 0T788ZZ Dilation of Bilateral Ureters, Via Natural or Artificial Opening Endoscopic (ICD-10-PCS; 2020-01-19 09:30)
PROC: BT141ZZ Fluoroscopy of Kidneys, Ureters and Bladder using Low Osmolar Contrast (ICD-10-PCS; 2020-01-19 09:30)
DX: N40.1 Benign prostatic hyperplasia with lower urinary tract symptoms (principal); E87.1 Hypo-osmolality and hyponatremia; M86.8X7 Other osteomyelitis, ankle and foot; N13.8 Other obstructive and reflux uropathy; N41.1 Chronic prostatitis; R33.9 Retention of urine, unspecified; R31.0 Gross hematuria; R80.9 Proteinuria, unspecified; N18.9 Chronic kidney disease, unspecified; R35.1 Nocturia; R39.12 Poor urinary stream; N25.9 Disorder resulting from impaired renal tubular function, unspecified; N31.2 Flaccid neuropathic bladder, not elsewhere classified; J44.9 Chronic obstructive pulmonary disease, unspecified; G47.33 Obstructive sleep apnea (adult) (pediatric); I25.10 Atherosclerotic heart disease of native coronary artery without angina pectoris; Z95.5 Presence of coronary angioplasty implant and graft; Z89.432 Acquired absence of left foot; I12.9 Hypertensive chronic kidney disease with stage 1 through stage 4 chronic kidney disease, or unspecified chronic kidney disease
CPT/HCPCS: 36415; 71046; 74420; 80048; 83735; 84132; 85025; 87071; 87075; 87205; 88304; 88305; 88311; 93005; J0690; J0696; J1100; J1580; J2001; J2405; J2543; J3010; J3370; J3410; J7030

== ENCOUNTER → 2021-09-26 | Outpatient (CLI) | payer MEDICARE, OTHER ==
[~2021-09-26] MED LIST changes: +ACETAMINOPHEN PO; +CEPHALEXIN500 MG PO; +NAPROXEN500 M1 PO
== END ==
LOC: MRI 06:29
PROVIDERS: ATTEND Podiatrist Foot & Ankle Surgery
DX: M86.071 Acute hematogenous osteomyelitis, right ankle and foot (principal)

== ENCOUNTER → 2021-10-29 | Day surgery (SDC) | payer MEDICARE, OTHER ==
[2021-10-24 09:29] LABS: BASOPHILS % 0.5 % (0.0-1.0); EOSINOPHILS # (AUTO) 0.3 (0.0-0.4); EOSINOPHILS % 4.5 % (0.0-6.0); HEMATOCRIT 36.3 % (38.2-49.6); LYMPHOCYTES # (AUTO) 1.3 (1.0-3.2); LYMPHOCYTES % 21.9 % (18.0-39.1); MEAN CORPUSCULAR HEMOGLOBIN 34.6 pg (28-32); MEAN CORPUSCULAR HGB CONC 33.1 g/dL (31-35); MEAN CORPUSCULAR VOLUME 104.6 fL (81-99); MONOCYTES # (AUTO) 0.5 (0.2-0.8); NEUTROPHILS # (AUTO) 3.8 (2.1-6.9); NEUTROPHILS % 63.6 % (38.7-80.0); PLATELET COUNT 152 x10e3/uL (140-360); RED BLOOD COUNT 3.47 x10e6/uL (4.3-5.7); RED CELL DISTRIBUTION WIDTH 13.5 % (11.7-14.4)
[~2021-10-29] MED LIST changes: +ABILIFY5 MG PO; +BUPIVACAINE HCL 0.5% INJ 30 ML VIAL INJ ONE; +CRESTOR10 MG PO; +DEXAMETHASONE SOD PHOS INJ 4 MG/ML SDV ONE; +DICLOXACILLIN500 MG; +EPHEDRINE SULFATE INJ 50 MG/ML VIAL ONE; +FENTANYL CITRATE/PF 100MCG/2 ML INJ ONE; +LIDOCAINE HCL 2% LOCAL INJ 5 ML SDV VIAL INJ ONE; +ONDANSETRON HCL INJ 2MG/ML 2ML 2 MG/ML VIAL ONE; +POVIDONE IODINE 0.05% 0.05 % ML PO ONE; +PROPOFOL IV EMULSION 10 MG/ML 20 ML VIAL ONE; +PROTONIX20 MG PO; +SEVOFLURANE INHAL SOLN 250 ML PEN BTL ONE; +SODIUM CHLORIDE 0.9% 50ML 50 ML ONE
[2021-10-29 08:05] VITALS: BP 123/63
== END | disposition home or self-care (01) ==
LOC: OR 06:17
PROVIDERS: ATTEND Podiatrist Foot & Ankle Surgery
DX: M86.671 Other chronic osteomyelitis, right ankle and foot (principal); G47.33 Obstructive sleep apnea (adult) (pediatric); E11.9 Type 2 diabetes mellitus without complications; I10 Essential (primary) hypertension; I25.10 Atherosclerotic heart disease of native coronary artery without angina pectoris; J44.9 Chronic obstructive pulmonary disease, unspecified; E78.5 Hyperlipidemia, unspecified; E03.9 Hypothyroidism, unspecified; K21.9 Gastro-esophageal reflux disease without esophagitis; F41.9 Anxiety disorder, unspecified; F32.A Depression, unspecified; Z01.810 Encounter for preprocedural cardiovascular examination; Z01.812 Encounter for preprocedural laboratory examination; Z01.818 Encounter for other preprocedural examination; Z20.822 Contact with and (suspected) exposure to COVID-19; Z79.02 Long term (current) use of antithrombotics/antiplatelets; Z79.899 Other long term (current) drug therapy; Z98.61 Coronary angioplasty status
CPT/HCPCS: 28810; 36415; 71046; 85025; 88305; 88311; 93005; J0690; J1100; J2001; J2405; J2704; J3010; U0002; 88304